=== PATIENT | male | born 1945 | race African-American/Black ===

== ENCOUNTER → 2017-06-11 | Outpatient (CLI) | payer MEDICARE, BC | END | disposition home or self-care (01) | LOC: KCIC MRI 12:50 | DX: M51.36 Other intervertebral disc degeneration, lumbar region (principal); M48.061 Spinal stenosis, lumbar region without neurogenic claudication; M17.0 Bilateral primary osteoarthritis of knee | CPT/HCPCS: 72148 ==

== ENCOUNTER → 2017-06-22 | Outpatient (CLI) | payer MEDICARE, BC ==
[2017-06-22 10:06] LABS: ALBUMIN 4.2 g/dL (3.4-5.0)
[2017-06-22 10:41] LABS: INR 1.1 (0.8-1.1); PARTIAL THROMBOPLASTIN TIME 33 SEC (24-38)
[2017-06-22 12:05] LABS: SEDIMENTATION RATE 4 (0-15)
[2017-06-22 12:44] LABS: BILIRUBIN,URINE NEGATIVE (NEG); CLARITY,URINE CLEAR; COLOR,URINE YELLOW; GLUCOSE,URINE NEGATIVE (NEG); NITRITE,URINE NEGATIVE (NEG); PROTEIN,URINE NEGATIVE (NEG-TRACE)
[2017-06-22 12:51] LABS: HYALINE CASTS, URINE FEW /HPF
[2017-06-22 12:52] LABS: BACTERIA,URINE 0 /HPF (0-FEW); RBC,URINE 0 /HPF (0-2); WBC,URINE 0 /HPF (0-4)
[2017-06-22 22:09] LABS: MRSA BY PCR Negative (Negative)
== END | disposition home or self-care (01) ==
LOC: SURGPAT 12:31
DX: Z01.818 Encounter for other preprocedural examination (principal); I10 Essential (primary) hypertension; I70.0 Atherosclerosis of aorta; R94.31 Abnormal electrocardiogram [ECG] [EKG]
CPT/HCPCS: 36415; 71046; 81001; 82040; 82306; 85610; 85651; 85730; 87641; 93005

== ENCOUNTER 2017-07-07 07:44 | Inpatient (IN) | payer MEDICARE, BC ==
[~2017-07-07 07:44] MED LIST: LIDOCAINE 1% PF 2 ML VIAL. ID; MELOXICAM 7.5 MG TABLET PO; MORPHINE SULFATE 4 MG/ML DISP.SYRIN. IV; fentaNYL PF VIAL 100 MCG/2 ML VIAL IV
[2017-07-07] MEDS: IV RINGERS,LACTATED 1000ML 1,000 ML IV (08:20)
[2017-07-07] MEDS: HYDROcodone/APAP 7.5/325MG 1 TAB TABLET PO (08:20)
[2017-07-07] MEDS ORDERED: SUCCINYLCHOLINE 200 MG/10 ML VIAL. (09:02)
[2017-07-07] MEDS ORDERED: DEXAMETHASONE SOD PHOS 20 MG/5 ML VIAL. (09:02)
[2017-07-07] MEDS ORDERED: PROPOFOL 20 ML IV (09:02)
[2017-07-07] MEDS ORDERED: LIDOCAINE 2% PF Vial for OR 5 ML VIAL. (09:02)
[2017-07-07] MEDS ORDERED: fentaNYL PF VIAL 100 MCG/2 ML VIAL ×2 (09:02→11:21)
[2017-07-07] MEDS ORDERED: ONDANSETRON PF 4 MG/2 ML VIAL. (09:03)
[2017-07-07] MEDS: TRANEXAMIC ACID 1,000 MG in IV NS 50ML -- 1ST BAG INJ (11:20)
[2017-07-07] MEDS: VANCOMYCIN 1 GM VIAL. (11:32)
[2017-07-07] MEDS: MORPHINE SULFATE 5 MG, KETOROLAC 30 MG, ROPIVacaine 0.5% PF 60 ML, EPINEPHrine 0.5 MG i... INT ART (11:32)
[2017-07-07] MEDS: TOBRAMYCIN POWDER 1.2 GM VIAL. (11:32)
[2017-07-07] MEDS ORDERED: SEVOFLURANE 16 TO 30 MINUTES. IH (11:50)
[2017-07-07] MEDS: TRANEXAMIC ACID 1,000 MG in IV NS 50ML -- 2ND BAG INJ (12:30)
[2017-07-07] MEDS ORDERED: ZOLPIDEM 5 MG TABLET. PO (13:30)
[2017-07-07] MEDS ORDERED: METOCLOPRAMIDE HCL 10 MG/2 ML VIAL. IV (13:30)
[2017-07-07] MEDS ORDERED: MORPHINE SULFATE 10 MG/ML VIAL. IV (13:30)
[2017-07-07] MEDS ORDERED: diphenhydrAMINE 50 MG/ML VIAL IV (13:30)
[2017-07-07] MEDS ORDERED: PROCHLORPERAZINE 5 MG TABLET. PO (13:30)
[2017-07-07] MEDS ORDERED: 0.9 % SODIUM CHLORIDE 10 ML DISP.SYRIN. IV (13:30)
[2017-07-07] MEDS ORDERED: oxyCODONE/APAP 7.5/325 1 TAB TABLET PO (13:30)
[2017-07-07] MEDS ORDERED: HYDROcodone/APAP 10/325 1 TAB TABLET PO (13:30)
[2017-07-07] MEDS ORDERED: CALCIUM CARBONATE 500 MG TAB.CHEW PO (13:30)
[2017-07-07] MEDS ORDERED: ACETAMINOPHEN 325 MG TABLET. PO (13:30)
[2017-07-07] MEDS ORDERED: oxyCODONE/APAP 5/325 1 TAB TABLET PO (13:30)
[2017-07-07] MEDS ORDERED: DEXTROSE 50% 25 GM / 50ML DISP.SYRIN. IV (13:30)
[2017-07-07] MEDS ORDERED: fentaNYL PF VIAL 100 MCG/2 ML VIAL IV ×2 (13:30)
[2017-07-07] MEDS ORDERED: traMADol 50 MG TABLET PO ×2 (13:30)
[2017-07-07] MEDS ORDERED: MORPHINE SULFATE 4 MG/ML DISP.SYRIN. IV ×3 (13:30)
[2017-07-07] MEDS ORDERED: PROCHLORPERAZINE 10 MG/2 ML VIAL. IV (13:30)
[2017-07-07] MEDS: PROCHLORPERAZINE 10 MG/2 ML VIAL. IV (14:05)
[2017-07-07] MEDS: FERROUS SULFATE 325 MG TABLET. PO (15:23)
[2017-07-07] MEDS: ONDANSETRON PF 4 MG/2 ML VIAL. IV (16:45)
[2017-07-07] MEDS: KETOROLAC 30 MG, BUPIVACAINE MPF 0.25% 20 ML, EPINEPHrine 0.5 MG in TOTAL VOLUME SYRING... INT ART (16:47)
[2017-07-07] MEDS: IV DEXTROSE 5 %-0.45 % NACL 1,000 ML IV (20:15)
[2017-07-07] MEDS: LATANOPROST 0.005% OPHTH SOLUTION 2.5ML BOTTLE. OU (20:17)
[2017-07-07] MEDS: ASPIRIN ENTERIC COATED 325 MG TABLET.DR. PO (21:01)
[2017-07-08] MEDS: IV DEXTROSE 5 %-0.45 % NACL 1,000 ML IV (01:00)
[2017-07-08] MEDS: KETOROLAC 30 MG, BUPIVACAINE MPF 0.25% 20 ML, EPINEPHrine 0.5 MG in TOTAL VOLUME SYRING... INT ART (05:19)
[2017-07-08 05:58] LABS: HEMATOCRIT 44.5 % (39.0-53.0); HEMOGLOBIN 14.9 g/dL (13.0-17.5); MEAN CORPUSCULAR HGB CONC 33 g/dL (31-37)
[2017-07-08] MEDS ORDERED: MAGNESIUM HYDROXIDE 2,400 MG/30 ML ORAL.SUSP. PO (06:00)
[2017-07-08] MEDS: PSYLLIUM HUSK (SUGAR FREE) 1 PKT PACKET PO (08:08)
[2017-07-08] MEDS: CHOLECALCIFEROL (VITAMIN D3) 1,000 UNIT TABLET PO (08:14)
[2017-07-08] MEDS: MELOXICAM 7.5 MG TABLET PO (08:14)
[2017-07-08] MEDS: SENNOSIDES/DOCUSATE 8.6/50MG TABLET. PO (08:16)
[2017-07-08] MEDS: MULTIVITAMIN with MINERAL TABLET. PO (08:16)
[2017-07-08] MEDS: ALLOPURINOL 300 MG TABLET. PO (08:16)
[2017-07-08] MEDS: TRIAMTERENE/HCTZ 37.5/25MG TABLET. PO (08:17)
[2017-07-08] MEDS: ASPIRIN ENTERIC COATED 325 MG TABLET.DR. PO ×2 (08:17→21:17)
[2017-07-08] MEDS: FERROUS SULFATE 325 MG TABLET. PO ×2 (08:17→16:44)
[2017-07-08] MEDS: HYDROcodone/APAP 7.5/325MG 1 TAB TABLET PO ×3 (08:18→16:44)
[2017-07-08] MEDS ORDERED: BISACODYL 10 MG SUPP.RECT. PR (16:00)
[2017-07-08] MEDS: LATANOPROST 0.005% OPHTH SOLUTION 2.5ML BOTTLE. OU (21:00)
[2017-07-09] MEDS: HYDROcodone/APAP 7.5/325MG 1 TAB TABLET PO ×4 (02:50→19:40)
[2017-07-09 06:07] LABS: HEMATOCRIT 41.8 % (39.0-53.0); HEMOGLOBIN 13.7 g/dL (13.0-17.5); MEAN CORPUSCULAR HGB CONC 33 g/dL (31-37)
[2017-07-09] MEDS: MULTIVITAMIN with MINERAL TABLET. PO (08:25)
[2017-07-09] MEDS: FERROUS SULFATE 325 MG TABLET. PO ×2 (08:25→17:52)
[2017-07-09] MEDS: MELOXICAM 7.5 MG TABLET PO (08:25)
[2017-07-09] MEDS: ALLOPURINOL 300 MG TABLET. PO (08:25)
[2017-07-09] MEDS: CHOLECALCIFEROL (VITAMIN D3) 1,000 UNIT TABLET PO (08:25)
[2017-07-09] MEDS: SENNOSIDES/DOCUSATE 8.6/50MG TABLET. PO (08:26)
[2017-07-09] MEDS: ASPIRIN ENTERIC COATED 325 MG TABLET.DR. PO ×2 (08:26→20:51)
[2017-07-09] MEDS: PSYLLIUM HUSK (SUGAR FREE) 1 PKT PACKET PO (08:28)
[2017-07-09] MEDS: TRIAMTERENE/HCTZ 37.5/25MG TABLET. PO (08:28)
[2017-07-09] MEDS: LATANOPROST 0.005% OPHTH SOLUTION 2.5ML BOTTLE. OU (21:00)
[2017-07-10 05:58] LABS: HEMOGLOBIN 12.7 g/dL (13.0-17.5); MEAN CORPUSCULAR HGB CONC 34 g/dL (31-37)
[2017-07-10] MEDS: PSYLLIUM HUSK (SUGAR FREE) 1 PKT PACKET PO (09:22)
[2017-07-10] MEDS: SENNOSIDES/DOCUSATE 8.6/50MG TABLET. PO (09:22)
[2017-07-10] MEDS: CHOLECALCIFEROL (VITAMIN D3) 1,000 UNIT TABLET PO (09:23)
[2017-07-10] MEDS: MELOXICAM 7.5 MG TABLET PO (09:23)
[2017-07-10] MEDS: ALLOPURINOL 300 MG TABLET. PO (09:23)
[2017-07-10] MEDS: ASPIRIN ENTERIC COATED 325 MG TABLET.DR. PO (09:23)
[2017-07-10] MEDS: FERROUS SULFATE 325 MG TABLET. PO (09:23)
[2017-07-10] MEDS: HYDROcodone/APAP 7.5/325MG 1 TAB TABLET PO ×2 (09:24→14:58)
[2017-07-10] MEDS: TRIAMTERENE/HCTZ 37.5/25MG TABLET. PO (09:24)
[2017-07-10] MEDS: MULTIVITAMIN with MINERAL TABLET. PO (09:24)
== END 2017-07-10 16:00 | disposition home health service (06) | DRG 470 ==
LOC: OPSVCIP 07:44 → 4 SOUTHEST 14:46
PROC: 0SRD0J9 Replacement of Left Knee Joint with Synthetic Substitute, Cemented, Open Approach (ICD-10-PCS; principal; 2017-07-07 10:45)
DX: M17.0 Bilateral primary osteoarthritis of knee (principal); I10 Essential (primary) hypertension; Z82.3 Family history of stroke
CPT/HCPCS: 36415; 73560; 85014; 85018; 86850; 86900; 86901; 97110-GO; 97116-GP; 97150-GP; 97162-GP; 97165-GO; 97530-GO; 97530-GP; 97535-GO; A7015; C1713; J0171; J0330; J0690; J0780; J1100; J1885; J2270; J2405; J2704; J2795; J3010; J3260; J3370; J3490; J7030; J7120

== ENCOUNTER → 2017-09-07 | Outpatient (CLI) | payer MEDICARE, BC | END | disposition home or self-care (01) | LOC: PMGWOUND 12:26 | DX: T81.31XA Disruption of external operation (surgical) wound, not elsewhere classified, initial encounter (principal); H40.9 Unspecified glaucoma; I10 Essential (primary) hypertension; M54.9 Dorsalgia, unspecified; M10.9 Gout, unspecified; E66.9 Obesity, unspecified; M17.0 Bilateral primary osteoarthritis of knee; Z96.652 Presence of left artificial knee joint; Z68.34 Body mass index [BMI] 34.0-34.9, adult; Y83.8 Other surgical procedures as the cause of abnormal reaction of the patient, or of later complication, without mention of misadventure at the time of the procedure; Y92.89 Other specified places as the place of occurrence of the external cause | CPT/HCPCS: 97606 ==

== ENCOUNTER → 2017-09-14 | Outpatient (CLI) | payer MEDICARE, BC | END | disposition home or self-care (01) | LOC: PMGWOUND 12:16 | DX: T81.31XD Disruption of external operation (surgical) wound, not elsewhere classified, subsequent encounter (principal); I10 Essential (primary) hypertension; M17.0 Bilateral primary osteoarthritis of knee; E66.9 Obesity, unspecified; Z96.652 Presence of left artificial knee joint; Z68.34 Body mass index [BMI] 34.0-34.9, adult; Y83.8 Other surgical procedures as the cause of abnormal reaction of the patient, or of later complication, without mention of misadventure at the time of the procedure | CPT/HCPCS: 97606 ==

== ENCOUNTER → 2017-09-21 | Outpatient (CLI) | payer MEDICARE, BC | END | disposition home or self-care (01) | LOC: PMGWOUND 11:40 | DX: T81.31XD Disruption of external operation (surgical) wound, not elsewhere classified, subsequent encounter (principal); I10 Essential (primary) hypertension; M17.0 Bilateral primary osteoarthritis of knee; E66.9 Obesity, unspecified; Z96.652 Presence of left artificial knee joint; Z68.34 Body mass index [BMI] 34.0-34.9, adult; Y83.8 Other surgical procedures as the cause of abnormal reaction of the patient, or of later complication, without mention of misadventure at the time of the procedure | CPT/HCPCS: 97606 ==

== ENCOUNTER 2017-09-27 08:26 | Emergency (ER) | payer MEDICARE, BC | END 2017-09-27 10:14 | disposition home or self-care (01) | LOC: ER 08:26 | DX: T82.898A Other specified complication of vascular prosthetic devices, implants and grafts, initial encounter (principal); I10 Essential (primary) hypertension; Y84.8 Other medical procedures as the cause of abnormal reaction of the patient, or of later complication, without mention of misadventure at the time of the procedure; Y92.89 Other specified places as the place of occurrence of the external cause | CPT/HCPCS: 99284 ==

== ENCOUNTER → 2017-09-28 | Outpatient (CLI) | payer MEDICARE, BC | END | disposition home or self-care (01) | LOC: PMGWOUND 10:34 | DX: T81.31XD Disruption of external operation (surgical) wound, not elsewhere classified, subsequent encounter (principal); I10 Essential (primary) hypertension; M17.0 Bilateral primary osteoarthritis of knee; E66.9 Obesity, unspecified; Z68.34 Body mass index [BMI] 34.0-34.9, adult; Z96.652 Presence of left artificial knee joint; Y83.8 Other surgical procedures as the cause of abnormal reaction of the patient, or of later complication, without mention of misadventure at the time of the procedure | CPT/HCPCS: 97606 ==

== ENCOUNTER → 2017-10-05 | Outpatient (CLI) | payer MEDICARE, BC | END | disposition home or self-care (01) | LOC: PMGWOUND 11:39 | DX: T81.31XD Disruption of external operation (surgical) wound, not elsewhere classified, subsequent encounter (principal); I10 Essential (primary) hypertension; M17.0 Bilateral primary osteoarthritis of knee; E66.9 Obesity, unspecified; Z96.652 Presence of left artificial knee joint; Z68.34 Body mass index [BMI] 34.0-34.9, adult; Y83.8 Other surgical procedures as the cause of abnormal reaction of the patient, or of later complication, without mention of misadventure at the time of the procedure | CPT/HCPCS: 97606 ==

== ENCOUNTER 2017-10-09 12:40 | Inpatient (IN) | payer MEDICARE, BC ==
[2017-10-09 14:27] LABS: ADD MAN DIFF? NO
[2017-10-09 14:37] LABS: BASO # 0.1 x10^3/uL (0.0-0.2); BASO % 1 % (0-3); EOS # 0.6 x10^3/uL (0.0-0.7); EOS % 3 % (0-3); HEMATOCRIT 46.8 % (39.0-53.0); HEMOGLOBIN 15.5 g/dL (13.0-17.5); LYMPH # 1.5 x10^3/uL (1.0-4.8); LYMPH % 9 % (24-48); MEAN CORPUSCULAR HEMOGLOBIN 26 pg (25-35); MEAN CORPUSCULAR HGB CONC 33 g/dL (31-37); MEAN CORPUSCULAR VOLUME 78 fL (79-100); MONO % 6 % (0-9); NEUT # 13.9 x10^3uL (1.8-7.7); NEUT % 81 % (31-73); PLATELET COUNT 833 x10^3/uL (140-400); RED BLOOD COUNT 5.97 x10^6/uL (4.30-5.70); RED CELL DISTRIBUTION WIDTH 16.2 % (11.5-14.5); WHITE BLOOD COUNT 17.1 x10^3/uL (4.0-11.0)
[2017-10-09 14:39] LABS: ANION GAP 11 (6-14); BLOOD UREA NITROGEN 26 mg/dL (8-26); CARBON DIOXIDE 27 mmol/L (21-32); CHLORIDE 99 mmol/L (98-107); CREATININE 1.4 mg/dL (0.7-1.3); GFR 60.3; GLUCOSE 98 mg/dL (70-99); POTASSIUM 3.4 mmol/L (3.5-5.1); SODIUM 137 mmol/L (136-145)
[2017-10-09 14:41] LABS: C-REACTIVE PROTEIN 26.4 mg/L (0-3.3)
[2017-10-09 15:52] LABS: SEDIMENTATION RATE 34 (0-15)
[2017-10-09 15:54] LABS: PLT ESTIMATE INCREASED (ADEQUATE)
[2017-10-09] MEDS ORDERED: MORPHINE SULFATE 4 MG/ML DISP.SYRIN. IV (17:15)
[2017-10-09] MEDS ORDERED: ONDANSETRON PF 4 MG/2 ML VIAL. IV ×2 (17:15→17:30)
[2017-10-09] MEDS ORDERED: ACETAMINOPHEN 500 MG TABLET PO (17:30)
[2017-10-09] MEDS: oxyCODONE/APAP 5/325 1 TAB TABLET PO (17:45)
[2017-10-09] MEDS: VANCOMYCIN PER PHARMACY MC ×2 (19:34→19:35)
[2017-10-09] MEDS: VANCOMYCIN 2 GM in IV NORMAL SALINE 500ML BAG 500 ML IV (20:02)
[2017-10-09] MEDS: C.DIFF MED SCREEN BY RX. MC (20:30)
[2017-10-09] MEDS ORDERED: CEFEPIME HCL 2 GM in IV DEXTROSE 5% 100ML 100 ML IV (22:00)
[2017-10-09] MEDS: TAMSULOSIN 0.4 MG CAP.ER.24H. PO (22:18)
[2017-10-09] MEDS: DOCUSATE SODIUM 100 MG CAPSULE. PO (22:18)
[2017-10-09] MEDS: ASPIRIN 325 MG TABLET PO (22:18)
[2017-10-09] MEDS: LACTOBACILLUS RHAMNOSUS GG 1 CAPSULE. PO (22:18)
[2017-10-09] MEDS: LATANOPROST 0.005% OPHTH SOLUTION 2.5ML BOTTLE. OU (22:22)
[2017-10-09] MEDS: CEFEPIME HCL IV Push 2 GM VIAL. IVP (23:27)
[2017-10-10] MEDS: diphenhydrAMINE HCL 25 MG CAPSULE PO ×2 (00:48→16:13)
[2017-10-10] MEDS: CEFEPIME HCL IV Push 2 GM VIAL. IVP ×3 (05:40→20:56)
[2017-10-10 05:41] LABS: BASO # 0.1 x10^3/uL (0.0-0.2); BASO % 1 % (0-3); EOS # 1.5 x10^3/uL (0.0-0.7); EOS % 9 % (0-3); HEMATOCRIT 43.2 % (39.0-53.0); HEMOGLOBIN 14.2 g/dL (13.0-17.5); LYMPH # 2.6 x10^3/uL (1.0-4.8); LYMPH % 16 % (24-48); MEAN CORPUSCULAR HEMOGLOBIN 26 pg (25-35); MEAN CORPUSCULAR HGB CONC 33 g/dL (31-37); MEAN CORPUSCULAR VOLUME 79 fL (79-100); MONO # 1.2 x10^3/uL (0.0-1.1); MONO % 7 % (0-9); NEUT # 10.8 x10^3uL (1.8-7.7); NEUT % 66 % (31-73); PLATELET COUNT 765 x10^3/uL (140-400); RED BLOOD COUNT 5.46 x10^6/uL (4.30-5.70); RED CELL DISTRIBUTION WIDTH 16.3 % (11.5-14.5); WHITE BLOOD COUNT 16.2 x10^3/uL (4.0-11.0)
[2017-10-10 06:17] LABS: ADD MAN DIFF? YES
[2017-10-10 06:26] LABS: ANION GAP 10 (6-14); BLOOD UREA NITROGEN 23 mg/dL (8-26); CALCIUM 10.1 mg/dL (8.5-10.1); CARBON DIOXIDE 26 mmol/L (21-32); CHLORIDE 101 mmol/L (98-107); CREATININE 1.2 mg/dL (0.7-1.3); GLUCOSE 87 mg/dL (70-99); SODIUM 137 mmol/L (136-145)
[2017-10-10 06:31] LABS: POTASSIUM 2.8 mmol/L (3.5-5.1)
[2017-10-10] MEDS: POTASSIUM CHLORIDE 20 MEQ TABLET.ER. PO ×2 (07:30→09:19)
[2017-10-10] MEDS: ASPIRIN 325 MG TABLET PO ×2 (09:17→20:57)
[2017-10-10] MEDS: MULTIVITAMIN with MINERAL TABLET. PO (09:17)
[2017-10-10] MEDS: FERROUS SULFATE 325 MG TABLET. PO (09:17)
[2017-10-10] MEDS: MELOXICAM 7.5 MG TABLET PO (09:17)
[2017-10-10] MEDS: LACTOBACILLUS RHAMNOSUS GG 1 CAPSULE. PO ×2 (09:17→20:57)
[2017-10-10] MEDS: ALLOPURINOL 300 MG TABLET. PO (09:18)
[2017-10-10] MEDS: TRIAMTERENE/HCTZ 37.5/25MG TABLET. PO (09:18)
[2017-10-10] MEDS: CHOLECALCIFEROL (VITAMIN D3) 1,000 UNIT TABLET PO (09:18)
[2017-10-10] MEDS: DOCUSATE SODIUM 100 MG CAPSULE. PO ×2 (09:18→20:57)
[2017-10-10] MEDS: PSYLLIUM HUSK (SUGAR FREE) 1 PKT PACKET PO (09:19)
[2017-10-10] MEDS: VANCOMYCIN PER PHARMACY MC (09:23)
[2017-10-10 09:36] LABS: % BASOS 1 % (0-3); % EOS 4 % (0-5); % LYMPHS 12 % (24-48); % MONOS 8 % (0-10); % SEGS 75 % (35-66); PLT ESTIMATE INCREASED (ADEQUATE)
[2017-10-10] MEDS: VANCOMYCIN 2 GM in IV NORMAL SALINE 500ML BAG 500 ML IV (13:32)
[2017-10-10] MEDS: HYDROCORTISONE 1% TOPICAL OINTMENT 30GM TUBE. TP ×2 (13:38→20:56)
[2017-10-10] MEDS ORDERED: VANCOMYCIN 1.5 GM in IV NORMAL SALINE 500ML BAG 500 ML IV (20:00)
[2017-10-10] MEDS: LATANOPROST 0.005% OPHTH SOLUTION 2.5ML BOTTLE. OU (20:56)
[2017-10-10] MEDS: TAMSULOSIN 0.4 MG CAP.ER.24H. PO (20:57)
[2017-10-11] MEDS: CEFEPIME HCL IV Push 2 GM VIAL. IVP ×3 (05:58→21:13)
[2017-10-11 07:29] LABS: ADD MAN DIFF? NO
[2017-10-11 07:43] LABS: ANION GAP 8 (6-14); BLOOD UREA NITROGEN 21 mg/dL (8-26); CALCIUM 9.3 mg/dL (8.5-10.1); CARBON DIOXIDE 25 mmol/L (21-32); CHLORIDE 104 mmol/L (98-107); CREATININE 1.2 mg/dL (0.7-1.3); GLUCOSE 103 mg/dL (70-99); POTASSIUM 3.4 mmol/L (3.5-5.1); SODIUM 137 mmol/L (136-145)
[2017-10-11 07:49] LABS: VANC TR 15.1 mcg/mL (10.0-20.0)
[2017-10-11 08:01] LABS: BASO # 0.1 x10^3/uL (0.0-0.2); BASO % 1 % (0-3); EOS # 1.9 x10^3/uL (0.0-0.7); EOS % 12 % (0-3); HEMATOCRIT 43.5 % (39.0-53.0); HEMOGLOBIN 14.1 g/dL (13.0-17.5); LYMPH # 2.3 x10^3/uL (1.0-4.8); LYMPH % 15 % (24-48); MEAN CORPUSCULAR HEMOGLOBIN 26 pg (25-35); MEAN CORPUSCULAR HGB CONC 33 g/dL (31-37); MEAN CORPUSCULAR VOLUME 79 fL (79-100); MONO # 1.1 x10^3/uL (0.0-1.1); MONO % 7 % (0-9); NEUT # 10.4 x10^3uL (1.8-7.7); NEUT % 66 % (31-73); PLATELET COUNT 757 x10^3/uL (140-400); RED BLOOD COUNT 5.48 x10^6/uL (4.30-5.70); RED CELL DISTRIBUTION WIDTH 16.1 % (11.5-14.5); WHITE BLOOD COUNT 15.9 x10^3/uL (4.0-11.0)
[2017-10-11] MEDS: VANCOMYCIN PER PHARMACY MC (08:15)
[2017-10-11] MEDS: CHOLECALCIFEROL (VITAMIN D3) 1,000 UNIT TABLET PO (08:22)
[2017-10-11] MEDS: LACTOBACILLUS RHAMNOSUS GG 1 CAPSULE. PO ×2 (08:22→21:12)
[2017-10-11] MEDS: PSYLLIUM HUSK (SUGAR FREE) 1 PKT PACKET PO (08:22)
[2017-10-11] MEDS: TRIAMTERENE/HCTZ 37.5/25MG TABLET. PO (08:22)
[2017-10-11] MEDS: MULTIVITAMIN with MINERAL TABLET. PO (08:22)
[2017-10-11] MEDS: FERROUS SULFATE 325 MG TABLET. PO (08:22)
[2017-10-11] MEDS: ALLOPURINOL 300 MG TABLET. PO (08:23)
[2017-10-11] MEDS: MELOXICAM 7.5 MG TABLET PO (08:23)
[2017-10-11] MEDS: ASPIRIN 325 MG TABLET PO ×2 (08:23→21:12)
[2017-10-11] MEDS: DOCUSATE SODIUM 100 MG CAPSULE. PO ×2 (08:23→21:12)
[2017-10-11] MEDS: VANCOMYCIN 2 GM in IV NORMAL SALINE 500ML BAG 500 ML IV (09:23)
[2017-10-11] MEDS: HYDROCORTISONE 1% TOPICAL OINTMENT 30GM TUBE. TP ×2 (09:23→21:12)
[2017-10-11] MEDS: LATANOPROST 0.005% OPHTH SOLUTION 2.5ML BOTTLE. OU (21:12)
[2017-10-11] MEDS: TAMSULOSIN 0.4 MG CAP.ER.24H. PO (21:12)
[2017-10-11] MEDS: diphenhydrAMINE HCL 25 MG CAPSULE PO (21:16)
[2017-10-12] MEDS: VANCOMYCIN 2 GM in IV NORMAL SALINE 500ML BAG 500 ML IV (02:20)
[2017-10-12 04:42] LABS: ADD MAN DIFF? NO
[2017-10-12 04:49] LABS: BASO # 0.1 x10^3/uL (0.0-0.2); BASO % 1 % (0-3); EOS % 13 % (0-3); HEMATOCRIT 42.1 % (39.0-53.0); HEMOGLOBIN 13.7 g/dL (13.0-17.5); LYMPH # 2.3 x10^3/uL (1.0-4.8); LYMPH % 15 % (24-48); MEAN CORPUSCULAR HEMOGLOBIN 26 pg (25-35); MEAN CORPUSCULAR HGB CONC 33 g/dL (31-37); MEAN CORPUSCULAR VOLUME 80 fL (79-100); MONO # 1.1 x10^3/uL (0.0-1.1); MONO % 7 % (0-9); NEUT # 9.9 x10^3uL (1.8-7.7); NEUT % 64 % (31-73); PLATELET COUNT 700 x10^3/uL (140-400); RED BLOOD COUNT 5.28 x10^6/uL (4.30-5.70); RED CELL DISTRIBUTION WIDTH 16.2 % (11.5-14.5); WHITE BLOOD COUNT 15.5 x10^3/uL (4.0-11.0)
[2017-10-12 05:07] LABS: ANION GAP 8 (6-14); BLOOD UREA NITROGEN 19 mg/dL (8-26); CALCIUM 9.3 mg/dL (8.5-10.1); CARBON DIOXIDE 25 mmol/L (21-32); CHLORIDE 104 mmol/L (98-107); CREATININE 1.2 mg/dL (0.7-1.3); GLUCOSE 84 mg/dL (70-99); POTASSIUM 3.2 mmol/L (3.5-5.1); SODIUM 137 mmol/L (136-145)
[2017-10-12] MEDS: CEFEPIME HCL IV Push 2 GM VIAL. IVP ×3 (06:01→21:51)
[2017-10-12] MEDS: MELOXICAM 7.5 MG TABLET PO (08:39)
[2017-10-12] MEDS: DOCUSATE SODIUM 100 MG CAPSULE. PO ×2 (08:39→21:46)
[2017-10-12] MEDS: LACTOBACILLUS RHAMNOSUS GG 1 CAPSULE. PO ×2 (08:41→21:46)
[2017-10-12] MEDS: CHOLECALCIFEROL (VITAMIN D3) 1,000 UNIT TABLET PO (08:41)
[2017-10-12] MEDS: MULTIVITAMIN with MINERAL TABLET. PO (08:42)
[2017-10-12] MEDS: FERROUS SULFATE 325 MG TABLET. PO (08:42)
[2017-10-12] MEDS: ASPIRIN 325 MG TABLET PO ×2 (08:43→21:46)
[2017-10-12] MEDS: TRIAMTERENE/HCTZ 37.5/25MG TABLET. PO (08:43)
[2017-10-12] MEDS: ALLOPURINOL 300 MG TABLET. PO (08:43)
[2017-10-12] MEDS: HYDROCORTISONE 1% TOPICAL OINTMENT 30GM TUBE. TP ×2 (08:44→21:51)
[2017-10-12] MEDS: PSYLLIUM HUSK (SUGAR FREE) 1 PKT PACKET PO (08:44)
[2017-10-12] MEDS: CIPROFLOXACIN HCL 250 MG TABLET. PO ×2 (12:18→21:46)
[2017-10-12] MEDS: POTASSIUM CHLORIDE 20 MEQ TABLET.ER. PO (16:26)
[2017-10-12] MEDS: TAMSULOSIN 0.4 MG CAP.ER.24H. PO (21:46)
[2017-10-12] MEDS: LATANOPROST 0.005% OPHTH SOLUTION 2.5ML BOTTLE. OU (21:47)
[2017-10-13] MEDS: CEFEPIME HCL IV Push 2 GM VIAL. IVP ×3 (06:31→21:35)
[2017-10-13 07:19] LABS: ADD MAN DIFF? NO
[2017-10-13 07:31] LABS: BASO # 0.1 x10^3/uL (0.0-0.2); BASO % 1 % (0-3); EOS # 1.7 x10^3/uL (0.0-0.7); EOS % 11 % (0-3); HEMATOCRIT 43.2 % (39.0-53.0); HEMOGLOBIN 14.3 g/dL (13.0-17.5); LYMPH # 2.4 x10^3/uL (1.0-4.8); LYMPH % 17 % (24-48); MEAN CORPUSCULAR HEMOGLOBIN 26 pg (25-35); MEAN CORPUSCULAR HGB CONC 33 g/dL (31-37); MEAN CORPUSCULAR VOLUME 79 fL (79-100); MONO % 7 % (0-9); NEUT # 9.6 x10^3uL (1.8-7.7); NEUT % 65 % (31-73); PLATELET COUNT 756 x10^3/uL (140-400); RED BLOOD COUNT 5.47 x10^6/uL (4.30-5.70); RED CELL DISTRIBUTION WIDTH 16.4 % (11.5-14.5); WHITE BLOOD COUNT 14.8 x10^3/uL (4.0-11.0)
[2017-10-13 07:51] LABS: ALBUMIN 2.7 g/dL (3.4-5.0); ALBUMIN/GLOBULIN RATIO 0.6 (1.0-1.7); ALK PHOS 142 U/L (46-116); ALT (SGPT) 20 U/L (16-63); ANION GAP 9 (6-14); AST (SGOT) 20 U/L (15-37); BLOOD UREA NITROGEN 19 mg/dL (8-26); BUN/CREATININE RATIO 13 (6-20); CALCIUM 9.6 mg/dL (8.5-10.1); CARBON DIOXIDE 25 mmol/L (21-32); CHLORIDE 104 mmol/L (98-107); CREATININE 1.5 mg/dL (0.7-1.3); GFR 55.7; GLUCOSE 106 mg/dL (70-99); POTASSIUM 3.3 mmol/L (3.5-5.1); SODIUM 138 mmol/L (136-145); TOTAL BILIRUBIN 0.3 mg/dL (0.2-1.0); TOTAL PROTEIN 7.5 g/dL (6.4-8.2)
[2017-10-13 08:48] LABS: SEDIMENTATION RATE 20 (0-15)
[2017-10-13] MEDS: ASPIRIN 325 MG TABLET PO ×2 (09:00→21:20)
[2017-10-13] MEDS: FERROUS SULFATE 325 MG TABLET. PO (09:00)
[2017-10-13] MEDS: MULTIVITAMIN with MINERAL TABLET. PO (09:00)
[2017-10-13] MEDS: DOCUSATE SODIUM 100 MG CAPSULE. PO ×2 (09:00→21:21)
[2017-10-13] MEDS: CIPROFLOXACIN HCL 250 MG TABLET. PO ×2 (09:00→21:20)
[2017-10-13] MEDS: ALLOPURINOL 300 MG TABLET. PO (09:00)
[2017-10-13] MEDS: HYDROCORTISONE 1% TOPICAL OINTMENT 30GM TUBE. TP ×2 (09:00→21:20)
[2017-10-13] MEDS: CHOLECALCIFEROL (VITAMIN D3) 1,000 UNIT TABLET PO (09:00)
[2017-10-13] MEDS: TRIAMTERENE/HCTZ 37.5/25MG TABLET. PO ×2 (09:00→09:19)
[2017-10-13] MEDS: MELOXICAM 7.5 MG TABLET PO (09:00)
[2017-10-13] MEDS: PSYLLIUM HUSK (SUGAR FREE) 1 PKT PACKET PO (09:00)
[2017-10-13] MEDS: LACTOBACILLUS RHAMNOSUS GG 1 CAPSULE. PO ×2 (09:00→21:20)
[2017-10-13 09:16] LABS: INR 1.2 (0.8-1.1); PROTHROMBIN TIME PATIENT 14.6 SEC (11.7-14.0)
[2017-10-13] MEDS ORDERED: LIDOCAINE WITH 8.4% SOD BICARB 3 ML DISP.SYRIN. (10:57)
[2017-10-13] MEDS ORDERED: fentaNYL PF VIAL 100 MCG/2 ML VIAL (11:03)
[2017-10-13] MEDS ORDERED: NALOXONE 0.4 MG/ML VIAL. (11:03)
[2017-10-13] MEDS ORDERED: FLUMAZENIL 0.5 MG/5 ML VIAL. IV (11:03)
[2017-10-13] MEDS ORDERED: MIDAZOLAM HCL/PF 2 MG/2 ML VIAL. (11:03)
[2017-10-13] MEDS: fentaNYL PF VIAL 100 MCG/2 ML VIAL IV (11:15)
[2017-10-13] MEDS: LIDOCAINE WITH 8.4% SOD BICARB 3 ML DISP.SYRIN. IJ (11:15)
[2017-10-13] MEDS: MIDAZOLAM HCL/PF 2 MG/2 ML VIAL. IV (11:15)
[2017-10-13] MEDS: LATANOPROST 0.005% OPHTH SOLUTION 2.5ML BOTTLE. OU (21:00)
[2017-10-13] MEDS: TAMSULOSIN 0.4 MG CAP.ER.24H. PO (21:20)
[2017-10-13] MEDS: diphenhydrAMINE HCL 25 MG CAPSULE PO (21:20)
[2017-10-14 04:39] LABS: ADD MAN DIFF? NO
[2017-10-14 04:57] LABS: BASO # 0.1 x10^3/uL (0.0-0.2); BASO % 1 % (0-3); EOS # 1.6 x10^3/uL (0.0-0.7); EOS % 11 % (0-3); HEMATOCRIT 42.4 % (39.0-53.0); LYMPH # 1.7 x10^3/uL (1.0-4.8); LYMPH % 12 % (24-48); MEAN CORPUSCULAR HEMOGLOBIN 26 pg (25-35); MEAN CORPUSCULAR HGB CONC 33 g/dL (31-37); MEAN CORPUSCULAR VOLUME 79 fL (79-100); MONO # 1.1 x10^3/uL (0.0-1.1); MONO % 7 % (0-9); NEUT % 69 % (31-73); PLATELET COUNT 747 x10^3/uL (140-400); RED BLOOD COUNT 5.36 x10^6/uL (4.30-5.70); RED CELL DISTRIBUTION WIDTH 16.4 % (11.5-14.5); WHITE BLOOD COUNT 14.6 x10^3/uL (4.0-11.0)
[2017-10-14 05:13] LABS: ANION GAP 9 (6-14); BLOOD UREA NITROGEN 21 mg/dL (8-26); CALCIUM 9.4 mg/dL (8.5-10.1); CARBON DIOXIDE 27 mmol/L (21-32); CHLORIDE 103 mmol/L (98-107); CREATININE 1.4 mg/dL (0.7-1.3); GFR 60.3; GLUCOSE 80 mg/dL (70-99); POTASSIUM 3.2 mmol/L (3.5-5.1); SODIUM 139 mmol/L (136-145)
[2017-10-14] MEDS: CEFEPIME HCL IV Push 2 GM VIAL. IVP ×2 (06:00→10:20)
[2017-10-14] MEDS: ALLOPURINOL 300 MG TABLET. PO (08:38)
[2017-10-14] MEDS: PSYLLIUM HUSK (SUGAR FREE) 1 PKT PACKET PO (08:38)
[2017-10-14] MEDS: ASPIRIN 325 MG TABLET PO (08:38)
[2017-10-14] MEDS: TRIAMTERENE/HCTZ 37.5/25MG TABLET. PO (08:38)
[2017-10-14] MEDS: CIPROFLOXACIN HCL 250 MG TABLET. PO (08:38)
[2017-10-14] MEDS: LACTOBACILLUS RHAMNOSUS GG 1 CAPSULE. PO (08:38)
[2017-10-14] MEDS: DOCUSATE SODIUM 100 MG CAPSULE. PO (08:39)
[2017-10-14] MEDS: FERROUS SULFATE 325 MG TABLET. PO (08:39)
[2017-10-14] MEDS: CHOLECALCIFEROL (VITAMIN D3) 1,000 UNIT TABLET PO (08:39)
[2017-10-14] MEDS: MULTIVITAMIN with MINERAL TABLET. PO (08:39)
[2017-10-14] MEDS: HYDROCORTISONE 1% TOPICAL OINTMENT 30GM TUBE. TP (08:39)
== END 2017-10-14 15:31 | disposition home health service (06) | DRG 314 ==
LOC: 5 SOUTH 18:00 → ER 12:40 → 5 SOUTH 16:27
PROC: 02PYX3Z Removal of Infusion Device from Great Vessel, External Approach (ICD-10-PCS; principal; 2017-10-09)
PROC: 07DR3ZX Extraction of Iliac Bone Marrow, Percutaneous Approach, Diagnostic (ICD-10-PCS; 2017-10-13)
DX: T80.212A Local infection due to central venous catheter, initial encounter (principal); E43 Unspecified severe protein-calorie malnutrition; E87.6 Hypokalemia; I10 Essential (primary) hypertension; N28.9 Disorder of kidney and ureter, unspecified; Y84.8 Other medical procedures as the cause of abnormal reaction of the patient, or of later complication, without mention of misadventure at the time of the procedure; Z96.652 Presence of left artificial knee joint; D72.829 Elevated white blood cell count, unspecified; D47.3 Essential (hemorrhagic) thrombocythemia; H26.9 Unspecified cataract; M19.90 Unspecified osteoarthritis, unspecified site; M21.372 Foot drop, left foot; Z82.3 Family history of stroke; Z82.49 Family history of ischemic heart disease and other diseases of the circulatory system; Z68.36 Body mass index [BMI] 36.0-36.9, adult
CPT/HCPCS: 36415; 38222; 77012; 80048; 80053; 80202; 85007; 85025; 85610; 85651; 86140; 87040; 87070; 88184; 88185; 88237; 93971; 97110-GO; 97110-GP; 97163-GP; 97166-GO; 97530-GP; 99152; 99153; 99285; 99285-25; J0692; J2250; J3010; J3370; J7040; Q0163

== ENCOUNTER → 2017-10-19 | Outpatient (CLI) | payer MEDICARE, BC | END | disposition home or self-care (01) | LOC: PMGWOUND 10:33 | DX: T81.31XD Disruption of external operation (surgical) wound, not elsewhere classified, subsequent encounter (principal); I10 Essential (primary) hypertension; M17.0 Bilateral primary osteoarthritis of knee; E66.9 Obesity, unspecified; Z96.652 Presence of left artificial knee joint; Z68.36 Body mass index [BMI] 36.0-36.9, adult; Y83.8 Other surgical procedures as the cause of abnormal reaction of the patient, or of later complication, without mention of misadventure at the time of the procedure | CPT/HCPCS: 97606 ==

== ENCOUNTER → 2017-10-26 | Outpatient (CLI) | payer MEDICARE, BC ==
[2017-10-14 11:00] VITALS: BP 138/83
[~2017-10-26] MED LIST changes: +ALLO300T PO; +ASPI325T8 PO; +CEFE2VIA2 IJ; +CEPH-264 PO; +CHOL2000 PO; +DOCU-150 PO; +FERR-36 PO; +FERR325T14 PO; +LACT1CAP21 PO; -LIDOCAINE 1% PF 2 ML VIAL. ID; +MELO15TA23 PO; +MELO15TA6 PO; -MELOXICAM 7.5 MG TABLET PO; -MORPHINE SULFATE 4 MG/ML DISP.SYRIN. IV; +MULT1TAB52 PO; +NIFE30TA17 PO; +OMEG1CAP6 PO; +TAMS0.4C97 PO; +TRAV5DRO OU; +TRIA1TAB3 PO; +WHEA1POW8 PO; -fentaNYL PF VIAL 100 MCG/2 ML VIAL IV
== END | disposition home or self-care (01) ==
LOC: PMGWOUND 10:43
PROVIDERS: ATTEND Emergency Medicine Undersea and Hyperbaric Medicine
DX: T81.31XD Disruption of external operation (surgical) wound, not elsewhere classified, subsequent encounter (principal); M17.0 Bilateral primary osteoarthritis of knee; I10 Essential (primary) hypertension; E66.8 Other obesity; M10.9 Gout, unspecified; Z68.36 Body mass index [BMI] 36.0-36.9, adult; Z96.652 Presence of left artificial knee joint; Z96.651 Presence of right artificial knee joint; Y83.8 Other surgical procedures as the cause of abnormal reaction of the patient, or of later complication, without mention of misadventure at the time of the procedure
CPT/HCPCS: 97606

== ENCOUNTER → 2017-11-02 | Outpatient (CLI) | payer MEDICARE, BC ==
[2017-10-14 11:00] VITALS: BP 138/83
== END | disposition home or self-care (01) ==
LOC: PMGWOUND 11:14
PROVIDERS: ATTEND Emergency Medicine Undersea and Hyperbaric Medicine
DX: T81.31XD Disruption of external operation (surgical) wound, not elsewhere classified, subsequent encounter (principal); I10 Essential (primary) hypertension; M10.9 Gout, unspecified; M17.0 Bilateral primary osteoarthritis of knee; E66.8 Other obesity; Z68.36 Body mass index [BMI] 36.0-36.9, adult; Z96.653 Presence of artificial knee joint, bilateral; Y83.8 Other surgical procedures as the cause of abnormal reaction of the patient, or of later complication, without mention of misadventure at the time of the procedure
CPT/HCPCS: 97606

== ENCOUNTER → 2017-11-09 | Outpatient (CLI) | payer MEDICARE, BC ==
[2017-10-14 11:00] VITALS: BP 138/83
== END | disposition home or self-care (01) ==
LOC: PMGWOUND 10:44
PROVIDERS: ATTEND Emergency Medicine Undersea and Hyperbaric Medicine
DX: T81.31XD Disruption of external operation (surgical) wound, not elsewhere classified, subsequent encounter (principal); M10.9 Gout, unspecified; M17.0 Bilateral primary osteoarthritis of knee; I10 Essential (primary) hypertension; E66.9 Obesity, unspecified; Z68.33 Body mass index [BMI] 33.0-33.9, adult; Z96.653 Presence of artificial knee joint, bilateral
CPT/HCPCS: 99214; G0463

== ENCOUNTER → 2017-11-17 | Outpatient (CLI) | payer MEDICARE, BC ==
[2017-10-14 11:00] VITALS: BP 138/83
== END | disposition home or self-care (01) ==
LOC: PMGWOUND 10:38
PROVIDERS: ATTEND Emergency Medicine Undersea and Hyperbaric Medicine
DX: T81.31XD Disruption of external operation (surgical) wound, not elsewhere classified, subsequent encounter (principal); I10 Essential (primary) hypertension; M17.0 Bilateral primary osteoarthritis of knee; M10.9 Gout, unspecified; H40.9 Unspecified glaucoma; E66.8 Other obesity; Z68.33 Body mass index [BMI] 33.0-33.9, adult; Z96.653 Presence of artificial knee joint, bilateral; Y83.8 Other surgical procedures as the cause of abnormal reaction of the patient, or of later complication, without mention of misadventure at the time of the procedure
CPT/HCPCS: 97597; 97598

== ENCOUNTER → 2017-11-23 | Outpatient (CLI) | payer MEDICARE, BC ==
[2017-10-14 11:00] VITALS: BP 138/83
== END | disposition home or self-care (01) ==
LOC: PMGWOUND 10:49
PROVIDERS: ATTEND Emergency Medicine Undersea and Hyperbaric Medicine
DX: T81.89XD Other complications of procedures, not elsewhere classified, subsequent encounter (principal); I10 Essential (primary) hypertension; M17.0 Bilateral primary osteoarthritis of knee; M10.9 Gout, unspecified; E66.8 Other obesity; Z68.33 Body mass index [BMI] 33.0-33.9, adult; Z96.653 Presence of artificial knee joint, bilateral; Y83.8 Other surgical procedures as the cause of abnormal reaction of the patient, or of later complication, without mention of misadventure at the time of the procedure
CPT/HCPCS: 11042; 11045

== ENCOUNTER → 2017-11-30 | Outpatient (CLI) | payer MEDICARE, BC ==
[2017-10-14 11:00] VITALS: BP 138/83
== END | disposition home or self-care (01) ==
LOC: PMGWOUND 10:17
PROVIDERS: ATTEND Emergency Medicine Undersea and Hyperbaric Medicine
DX: T81.31XD Disruption of external operation (surgical) wound, not elsewhere classified, subsequent encounter (principal); I10 Essential (primary) hypertension; M10.9 Gout, unspecified; M17.0 Bilateral primary osteoarthritis of knee; E66.8 Other obesity; Z68.33 Body mass index [BMI] 33.0-33.9, adult; Y83.8 Other surgical procedures as the cause of abnormal reaction of the patient, or of later complication, without mention of misadventure at the time of the procedure
CPT/HCPCS: 99213

== ENCOUNTER → 2017-12-07 | Outpatient (CLI) | payer MEDICARE, BC ==
[2017-10-14 11:00] VITALS: BP 138/83
== END | disposition home or self-care (01) ==
LOC: PMGWOUND 10:22
PROVIDERS: ATTEND Emergency Medicine Undersea and Hyperbaric Medicine
DX: T81.31XD Disruption of external operation (surgical) wound, not elsewhere classified, subsequent encounter (principal); I10 Essential (primary) hypertension; M10.9 Gout, unspecified; M17.0 Bilateral primary osteoarthritis of knee; E66.8 Other obesity; Z68.33 Body mass index [BMI] 33.0-33.9, adult; Y83.8 Other surgical procedures as the cause of abnormal reaction of the patient, or of later complication, without mention of misadventure at the time of the procedure
CPT/HCPCS: 99214; G0463

== ENCOUNTER → 2017-12-14 | Outpatient (CLI) | payer MEDICARE, BC ==
[2017-10-14 11:00] VITALS: BP 138/83
== END | disposition home or self-care (01) ==
LOC: PMGWOUND 10:25
PROVIDERS: ATTEND Emergency Medicine Undersea and Hyperbaric Medicine
DX: T81.31XD Disruption of external operation (surgical) wound, not elsewhere classified, subsequent encounter (principal); I10 Essential (primary) hypertension; M17.0 Bilateral primary osteoarthritis of knee; M10.9 Gout, unspecified; E66.8 Other obesity; Z68.33 Body mass index [BMI] 33.0-33.9, adult; Y83.8 Other surgical procedures as the cause of abnormal reaction of the patient, or of later complication, without mention of misadventure at the time of the procedure
CPT/HCPCS: 97597

== ENCOUNTER → 2017-12-21 | Outpatient (CLI) | payer MEDICARE, BC ==
[2017-10-14 11:00] VITALS: BP 138/83
== END | disposition home or self-care (01) ==
LOC: PMGWOUND 10:19
PROVIDERS: ATTEND Emergency Medicine Undersea and Hyperbaric Medicine
DX: T81.31XD Disruption of external operation (surgical) wound, not elsewhere classified, subsequent encounter (principal); I10 Essential (primary) hypertension; M17.0 Bilateral primary osteoarthritis of knee; M10.9 Gout, unspecified; E66.8 Other obesity; H40.9 Unspecified glaucoma; Z68.33 Body mass index [BMI] 33.0-33.9, adult; Z96.653 Presence of artificial knee joint, bilateral; Y83.8 Other surgical procedures as the cause of abnormal reaction of the patient, or of later complication, without mention of misadventure at the time of the procedure
CPT/HCPCS: 97597

== ENCOUNTER → 2017-12-28 | Outpatient (CLI) | payer MEDICARE, BC ==
[2017-10-14 11:00] VITALS: BP 138/83
== END | disposition home or self-care (01) ==
LOC: PMGWOUND 10:28
PROVIDERS: ATTEND Emergency Medicine Undersea and Hyperbaric Medicine
DX: T81.31XD Disruption of external operation (surgical) wound, not elsewhere classified, subsequent encounter (principal); I10 Essential (primary) hypertension; M17.0 Bilateral primary osteoarthritis of knee; M10.9 Gout, unspecified; H40.9 Unspecified glaucoma; E66.8 Other obesity; Z68.33 Body mass index [BMI] 33.0-33.9, adult; Z96.653 Presence of artificial knee joint, bilateral; Y83.8 Other surgical procedures as the cause of abnormal reaction of the patient, or of later complication, without mention of misadventure at the time of the procedure
CPT/HCPCS: 99214; G0463

== ENCOUNTER → 2018-01-04 | Outpatient (CLI) | payer MEDICARE, BC ==
[2017-10-14 11:00] VITALS: BP 138/83
[~2018-01-04] MED LIST changes: +FOLI1TAB16 PO; +HYDR500C16 PO; +LEVE500T56 PO
== END | disposition home or self-care (01) ==
LOC: PMGWOUND 11:12
PROVIDERS: ATTEND Emergency Medicine Undersea and Hyperbaric Medicine
DX: T81.31XD Disruption of external operation (surgical) wound, not elsewhere classified, subsequent encounter (principal); I10 Essential (primary) hypertension; M10.9 Gout, unspecified; M17.0 Bilateral primary osteoarthritis of knee; H40.9 Unspecified glaucoma; E66.8 Other obesity; Z68.33 Body mass index [BMI] 33.0-33.9, adult; Y83.8 Other surgical procedures as the cause of abnormal reaction of the patient, or of later complication, without mention of misadventure at the time of the procedure
CPT/HCPCS: 99215

== ENCOUNTER 2018-01-07 19:22 | Inpatient (IN) | payer MEDICARE, BC ==
[~2018-01-07] VITALS: Ht 185.4 cm; Wt 104.3 kg
[~2018-01-07 19:22] MED LIST changes: -FOLI1TAB16 PO; -HYDR500C16 PO; -LEVE500T56 PO
[2018-01-07 20:38] LABS: BASO % 0 % (0-3); EOS % 0 % (0-3); HEMATOCRIT 44.2 % (39.0-53.0); HEMOGLOBIN 14.6 g/dL (13.0-17.5); LYMPH # 1.5 x10^3/uL (1.0-4.8); LYMPH % 12 % (24-48); MEAN CORPUSCULAR HEMOGLOBIN 28 pg (25-35); MEAN CORPUSCULAR HGB CONC 33 g/dL (31-37); MEAN CORPUSCULAR VOLUME 85 fL (79-100); MONO # 1.4 x10^3/uL (0.0-1.1); MONO % 11 % (0-9); NEUT # 9.7 x10^3uL (1.8-7.7); NEUT % 77 % (31-73); PLATELET COUNT 704 x10^3/uL (140-400); RED BLOOD COUNT 5.21 x10^6/uL (4.30-5.70); RED CELL DISTRIBUTION WIDTH 28.4 % (11.5-14.5); WHITE BLOOD COUNT 12.6 x10^3/uL (4.0-11.0)
[2018-01-07 20:43] LABS: CALCIUM 9.9 mg/dL (8.5-10.1); CREATININE 1.4 mg/dL (0.7-1.3); GFR 60.3
[2018-01-07 20:55] LABS: ALBUMIN 2.8 g/dL (3.4-5.0); ALBUMIN/GLOBULIN RATIO 0.5 (1.0-1.7); TOTAL BILIRUBIN 0.6 mg/dL (0.2-1.0); TOTAL PROTEIN 8.9 g/dL (6.4-8.2)
--- NOTE | 2018-01-07 21:01 | RAD ---
PQRS Compliance statement: One or more of the following individualized dose reduction techniques were utilized for this examination: 1. Automated exposure control. 2. Adjustment of the mA and/or kV according to patient size. 3. Use of iterative reconstruction technique. Indication:SEIZURE TECHNIQUE: CT head without IV contrast COMPARISON:None FINDINGS: No pathologic extra-axial or intra-axial fluid collection. The ventricles and basal cisterns are within normal limits. Mild diffuse cerebral atrophy. No acute intracranial bleed. Confluent low-attenuation is seen in the periventricular and deep white matter. No focal loss of mane-white differentiation. The orbits are within normal limits. No suspicious calvarial lesion. Visualized paranasal sinuses and mastoid air cells are clear. IMPRESSION: 1. No acute intracranial process. 2. Confluent moderate White matter changes most likely secondary to chronic microvascular ischemic disease. Electronically signed by: Hansel Fine DO (01/07/2018 8:59 PM) [facility]
[2018-01-07 21:03] LABS: ANISOCYTOSIS MOD; PLT ESTIMATE INCREASED (ADEQUATE)
[2018-01-07] MEDS ORDERED: POTASSIUM CHLORIDE 20MEQ 50 ML IV ONE (21:45)
[2018-01-07] MEDS ORDERED: POTASSIUM CL 40MEQ IN 0.9%NACL 1,000 ML IV ONE (22:00)
[2018-01-07 22:56] LABS: BILIRUBIN,URINE NEGATIVE (NEG); CLARITY,URINE CLEAR; COLOR,URINE YELLOW; NITRITE,URINE NEGATIVE (NEG); PROTEIN,URINE 30 mg/dL (NEG-TRACE)
--- NOTE | 2018-01-07 23:03 | PHYS DOC ---
Past Medical History Past Medical History: Hypertension, Other Additional Past Medical Histor: pseudomonas infection, gout Past Surgical History: Knee Replacement, Other Additional Past Surgical Histo: Left knee hardware removal/antibiotic spacer Alcohol Use: None Drug Use: None Adult General Chief Complaint Chief Complaint: NEURO SYMPTOMS/DEFICITS [facility] HPI Patient is a 72 year old male who presents with an episode of absent gaze when he was transferring from his wheelchair 30 minutes prior to arrival. His states that he also had some tremors while it was occurring. She states that he has no history of seizure disorder. The patient does have a very complicated medical history with his left knee. He had surgery in June and has been unable to walk since that time. He is waiting for plastic surgery [facility] for skin grafts to cover tendons and musculature that is showing from a nonhealing wound. The patient is being seen by wound care for this problem. She states that he had increasing weakness over the past 2 days. He cannot have surgery until his platelet count comes down. He is being treated by Dr. Obrien for his thrombocytosis. She feels like the medication that he is taking might be causing his symptoms. He has also had 2 episodes of vomiting yesterday. His primary care provider called Jamar and he has not vomited since. Review of Systems Review of Systems Constitutional: Denies fever or chills [] Eyes: Denies change in visual acuity, redness, or eye pain [] HENT: Denies nasal congestion or sore throat [] Respiratory: Denies cough or shortness of breath [] Cardiovascular: No additional information not addressed in HPI [] GI: Denies abdominal pain, nausea, vomiting, bloody stools or diarrhea [] : Denies dysuria or hematuria [] Musculoskeletal: See history of present illness Integument: Denies rash or skin lesions [] Neurologic: Denies headache, focal weakness or sensory changes [] Endocrine: Denies polyuria or polydipsia [] All other systems were reviewed and found to be within normal limits, except as documented in this note. Current Medications Current Medications Current Medications Medications (Trade) Dose Ordered Sig/Sánchez Start Time Stop Time Status Last Admin Dose Admin Potassium Chloride/Sodium Chloride 1,000 ml @ 200 mls/hr 1X ONCE 01/07/18 22:00 01/08/18 02:59 01/07/18 22:00 200 MLS/HR Potassium Chloride/Water 50 ml @ 50 mls/hr 1X ONCE 01/07/18 21:45 01/07/18 22:44 UNV Allergies Allergies Allergies Coded Allergies Type Severity Reaction Last Updated Verified No Known Drug Allergies 08/31/17 No Physical Exam Physical Exam Constitutional: Well developed, well nourished, no acute distress, non-toxic appearance. [] HENT: Normocephalic, atraumatic, bilateral external ears normal, oropharynx moist, no oral exudates, nose normal. [] Eyes: PERRLA, EOMI, conjunctiva normal, no discharge. [] Neck: Normal range of motion, no tenderness, supple, no stridor. [] Cardiovascular:Heart rate regular rhythm, no murmur [] Lungs & Thorax: Bilateral breath sounds clear to auscultation [] Abdomen: Bowel sounds normal, soft, no tenderness, no masses, no pulsatile masses. [] Skin: Warm, dry, no erythema, no rash. [] Back: No tenderness, no CVA tenderness. [] Extremities: tenderness to left knee, range of motion decreased, knee is bandaged Neurologic: Alert and oriented X 3, normal motor function, normal sensory function, no focal deficits noted, cranial nerves II through XII are grossly intact. [] Psychologic: Affect normal, judgement normal, mood normal. [] Current Patient Data Vital Signs Vital Signs Date Time Temp Pulse Resp B/P (MAP) Pulse Ox O2 Delivery O2 Flow Rate FiO2 01/07/18 19:22 99.9 94 18 126/70 (88) 97 Room Air 99.9 Lab Values Laboratory Tests Test 01/07/18 19:42 01/07/18 22:45 White Blood Count 12.6 x10^3/uL (4.0-11.0) H Red Blood Count 5.21 x10^6/uL (4.30-5.70) Hemoglobin 14.6 g/dL (13.0-17.5) Hematocrit 44.2 % (39.0-53.0) Mean Corpuscular Volume 85 fL (79-100) Mean Corpuscular Hemoglobin 28 pg (25-35) Mean Corpuscular Hemoglobin Concent 33 g/dL (31-37) Red Cell Distribution Width 28.4 % (11.5-14.5) H Platelet Count 704 x10^3/uL (140-400) H Neutrophils (%) (Auto) 77 % (31-73) H Lymphocytes (%) (Auto) 12 % (24-48) L Monocytes (%) (Auto) 11 % (0-9) H Eosinophils (%) (Auto) 0 % (0-3) Basophils (%) (Auto) 0 % (0-3) Neutrophils # (Auto) 9.7 x10^3uL (1.8-7.7) H Lymphocytes # (Auto) 1.5 x10^3/uL (1.0-4.8) Monocytes # (Auto) 1.4 x10^3/uL (0.0-1.1) H Eosinophils # (Auto) 0.0 x10^3/uL (0.0-0.7) Basophils # (Auto) 0.0 x10^3/uL (0.0-0.2) Platelet Estimate Increased (ADEQUATE) Anisocytosis Mod Erythrocyte Sedimentation Rate 49 (0-15) H Sodium Level 136 mmol/L (136-145) Potassium Level 3.0 mmol/L (3.5-5.1) L Chloride Level 94 mmol/L (98-107) L Carbon Dioxide Level 35 mmol/L (21-32) H Anion Gap 7 (6-14) Blood Urea Nitrogen 21 mg/dL (8-26) Creatinine 1.4 mg/dL (0.7-1.3) H Estimated GFR (Cockcroft-Gault) 60.3 BUN/Creatinine Ratio 15 (6-20) Glucose Level 118 mg/dL (70-99) H Lactic Acid Level 1.4 mmol/L (0.4-2.0) Calcium Level 9.9 mg/dL (8.5-10.1) Total Bilirubin 0.6 mg/dL (0.2-1.0) Aspartate Amino Transferase (AST) 25 U/L (15-37) Alanine Aminotransferase (ALT) 23 U/L (16-63) Alkaline Phosphatase 109 U/L (46-116) Total Protein 8.9 g/dL (6.4-8.2) H Albumin 2.8 g/dL (3.4-5.0) L Albumin/Globulin Ratio 0.5 (1.0-1.7) L Urine Collection Type Unknown Urine Color Yellow Urine Clarity Clear Urine pH 6.0 Urine Specific [place] 1.015 Urine Protein 30 mg/dL (NEG-TRACE) Urine Glucose (UA) Negative mg/dL (NEG) Urine Ketones (Stick) Negative mg/dL (NEG) Urine Blood Negative (NEG) Urine Nitrite Negative (NEG) Urine Bilirubin Negative (NEG) Urine Urobilinogen Dipstick 2.0 mg/dL (0.2 mg/dL) Urine Leukocyte Esterase Trace (NEG) Urine RBC 0 /HPF (0-2) Urine WBC 0 /HPF (0-4) Urine Squamous Epithelial Cells Occ /LPF Urine Bacteria 0 /HPF (0-FEW) Laboratory Tests 01/07/18 19:42 Laboratory Tests 01/07/18 19:42 EKG EKG [] Radiology/Procedures Radiology/Procedures [] PATIENT: ELIZABETH ROMERO ACCOUNT: [id number] : 1945 LOCATION: ER AGE: 72 SEX: M EXAM STATUS: REG ER ORD. PHYSICIAN: SHERYL WERNER APRN REASON: had a seizure like episode today PROCEDURE: CT HEAD WO CONTRAST PQRS Compliance statement: One or more of the following individualized dose reduction techniques were utilized for this examination: 1. Automated exposure control. 2. Adjustment of the mA and/or kV according to patient size. 3. Use of iterative reconstruction technique. Indication:SEIZURE TECHNIQUE: CT head without IV contrast COMPARISON:None FINDINGS: No pathologic extra-axial or intra-axial fluid collection. The ventricles and basal cisterns are within normal limits. Mild diffuse cerebral atrophy. No acute intracranial bleed. Confluent low-attenuation is seen in the periventricular and deep white matter. No focal loss of mane-white differentiation. The orbits are within normal limits. No suspicious calvarial lesion. Visualized paranasal sinuses and mastoid air cells are clear. IMPRESSION: 1. No acute intracranial process. 2. Confluent moderate White matter changes most likely secondary to chronic microvascular ischemic disease. Electronically signed by: Hansel Fine DO (01/07/2018 8:59 PM) [facility] DICTATED and SIGNED BY: HANSEL FINE DO DATE: 01/07/182055 Course & Med Decision Making Course & Med Decision Making Pertinent Labs and Imaging studies reviewed. (See chart for details) The patient is receiving potassium in the emergency department. ER physician attending note: 12:30 AM: 01/08/18: Patient was seen by nurse practitioner, who had left the department after the completion of her shift, and was waiting to be discharged. While waiting to discharge the patient had another "episode", witnessed by staff, where he had drooling out of the right side of his mouth and a right-sided gaze fixed, along with what look like a fine tremor in his hand. He slowly had returned to his baseline mental status, he is currently without any neurological deficit and is able to follow commands. His episodes are suspicious for focal seizure activity. He has not had any seizures in the past. At this point given this recurrent episodes the patient be admitted to the hospitalist, who accepted admission, for further evaluation and neurologic consultation. Dragon Disclaimer Dragon Disclaimer This electronic medical record was generated, in whole or in part, using a voice recognition dictation system. Departure Departure Impression: Primary Impression: Seizure-like activity Additional Impression: Open wound of left knee Disposition: ADMITTED INPATIENT Condition: STABLE Referrals: KARINA MCGEE MD (PCP) Patient Instructions: Wound Care, [id number] Additional Instructions: Follow-up for a recheck with your primary care provider tomorrow. The patient's potassium was still low. We did replace his replace potassium in the emergency department. If worsening return to the emergency department. Problem Qualifiers SHERYL WERNER APRN Jan 07, 2018 23:03 EFREM REESE MD Jan 08, 2018 00:33
[2018-01-07 23:05] LABS: BACTERIA,URINE 0 /HPF (0-FEW); RBC,URINE 0 /HPF (0-2); SQUAMOUS EPITHELIAL CELL,UR OCC /LPF; WBC,URINE 0 /HPF (0-4)
[2018-01-08] MEDS ORDERED: ASPIRIN 325 MG TABLET PO ONE (01:00)
[2018-01-08] MEDS: levETIRAcetam 500 MG in IV DEXTROSE 5% 100ML 100 ML IV SCH ×3 (01:02→21:01)
[2018-01-08 03:00] VITALS: BP 107/57
[2018-01-08] MEDS ORDERED: TRAV5DRO OU (05:05)
[2018-01-08 07:00] VITALS: BP 109/59
--- NOTE | 2018-01-08 07:18 | EKG ---
[facility] [address] [place] [address] Test Date: 2018-01-07 Test Time: 19:30:13 Pat Name: ELIZABETH ROMERO Department: Room: 2 Gender: M Risk Analyst: : 1945 Requested By: SHERYL WERNER Order Number: [id number] Reading MD: Wayne Ramirez MD Measurements Intervals [place] Rate: 93 P: -21 MS: 146 QRS: -63 QRSD: 102 T: 27 QT: 418 QTc: 523 Interpretive Statements SINUS RHYTHM NON-SPECIFIC ST/T CHANGES PROLONGED QT Electronically Signed On 01-11-2018 11:03:34 CDT by Wayne Ramirez MD
[2018-01-08] MEDS ORDERED: HYDR500C16 PO ×2 (07:43)
[2018-01-08] MEDS ORDERED: HYDROXYUREA 500 MG CAPSULE PO SCH (09:00)
[2018-01-08] MEDS ORDERED: ONDANSETRON PF 4 MG/2 ML VIAL. IV PRN (09:30)
[2018-01-08] MEDS ORDERED: IBUPROFEN 400 MG TABLET. PO PRN (09:30)
[2018-01-08] MEDS ORDERED: ACETAMINOPHEN 500 MG TABLET PO PRN (09:30)
[2018-01-08] MEDS ORDERED: ONDANSETRON ODT 4 MG TAB.RAPDIS. PO PRN (09:30)
[2018-01-08] MEDS ORDERED: ACETAMINOPHEN/CODEINE 300/30MG TABLET. PO PRN (09:30)
[2018-01-08 11:00] VITALS: BP 104/59
[2018-01-08] MEDS: LACTOBACILLUS RHAMNOSUS GG 1 CAPSULE. PO SCH ×2 (12:00→21:02)
--- NOTE | 2018-01-08 12:37 | PDOC1 ---
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 He comes in for a different reason right now. He is a 72-year-old -[place] male who was thought to have what sounds like absence seizure by the family. This is new to him. He was about to be discharged from the ER when he went to another focal seizure with LOC witnessed by ER hence admitted with neurology on board. He is now having a sleep study/EEG done. I do believe he is done with PICC line/IV abx for the left knee recurrent infection. His MAXIMUM TEMPERATURE is 100.6 looking at the chart. ESR is 49. Hemoglobin stable with a platelets of 704 and a WBC 12. We will see post EEG. Jac onc was consulted for the high platelets - last time tehy were on board they were ruling out myeloproliferative d/o with JAK2 mutation tests Past Medical History Cardiovascular: No pertinent hx, HTN Musculoskeletal: Other Infectious disease: Other (bacteremia, chornic knee infections needing IV abx weeks) Past Surgical History Past Surgical History: Total knee replacement Family History Family History: Hypertension, Stroke Social History Smoke: No ALCOHOL: none Drugs: None Current Problem List Problem List Problems Medical Problems: (1) Seizure-like activity Status: Acute Current Medications Current Medications Current Medications Potassium Chloride/Water 50 ml @ 50 mls/hr 1X ONCE IV ; Start 01/07/18 at 21: 45; Stop 01/07/18 at 22:44; Status UNV Potassium Chloride/Sodium Chloride 1,000 ml @ 200 mls/hr 1X ONCE IV Last administered on 01/07/18at 22:00; Start 01/07/18 at 22:00; Stop 01/08/18 at 02 :59; Status DC Aspirin (Silvino Aspirin) 325 mg 1X ONCE PO ; Start 01/08/18 at 01:00; Stop at 01:01; Status DC Levetiracetam 500 mg/Dextrose 105 ml @ 420 mls/hr Q12HR IV Last administered on 01/08/18at 09:27; Start 01/08/18 at 01:00 Lorazepam (Ativan) 2 mg PRN Q4HRS PRN IV ANXIETY / AGITATION; Start 01/08/18 at 09:30 Acetaminophen (Tylenol) 500 mg PRN Q6HRS PRN PO MILD PAIN / TEMP; Start at 09:30 Acetaminophen/ Codeine Phosphate (Tylenol #3) 1 tab PRN Q6HRS PRN PO PAIN; Start 01/08/18 at 09:30 Ibuprofen (Motrin) 400 mg PRN Q6HRS PRN PO INFLAMMATION; Start 01/08/18 at 09: 30 Ondansetron HCl (Zofran) 4 mg PRN Q6HRS PRN IV NAUSEA/VOMITING; Start at 09:30 Ondansetron HCl (Zofran Odt) 4 mg PRN Q6HRS PRN PO NAUSEA/VOMITING; Start at 09:30 Allopurinol (Zyloprim) 300 mg DAILY PO ; Start 01/08/18 at 12:00 Aspirin (Silvino Aspirin) 325 mg BID PO ; Start 01/08/18 at 12:00 Docusate Sodium (Colace) 100 mg BID PO ; Start 01/08/18 at 12:00 Ferrous Sulfate (Feosol) 325 mg DAILY PO ; Start 01/08/18 at 12:00 Tamsulosin HCl (Flomax) 0.4 mg QHS PO ; Start 01/08/18 at 21:00 Triamterene/HCTZ (Maxzide 37.5/ 25mg) 1 tab DAILY PO ; Start 01/08/18 at 12:00 Vitamin D (Vitamin D3) 2,000 unit DAILY PO ; Start 01/08/18 at 12:00 Hydroxyurea (Hydrea) 1,500 mg TuThSa PO ; Start 01/09/18 at 09:00 Hydroxyurea (Hydrea) 2,000 mg SuMoWeFr PO ; Start 01/08/18 at 09:00 Lactobacillus Rhamnosus (Culturelle) 2 cap BID PO ; Start 01/08/18 at 12:00 Multivitamins (Thera M Plus) 1 tab DAILY PO ; Start 01/08/18 at 12:00 Non-Formulary Medication (Nifedipine (Nifedipine Er)) 90 mg DAILY PO ; Start at 09:00; Status UNV Latanoprost (Xalatan) 1 drop QHS OU ; Start 01/08/18 at 21:00 Latanoprost (Xalatan) 1 drop QHS OU ; Start 01/08/18 at 21:00 Active Scripts Active Flomax (Tamsulosin Hcl) 0.4 Mg Cap.er.24h 0.4 Mg PO QHS Reported Hydroxyurea 500 Mg Capsule 1,500 Mg PO TUTHSA Hydroxyurea 500 Mg Capsule 2,000 Mg PO SUMOWEFR Travatan Z (Travoprost) 5 Ml Drops 5 Ml OU QHS Multivitamins (Multivitamin) 1 Each Tablet 1 Tab PO DAILY Iron (Ferrous Sulfate) 325 Mg Tablet 325 Mg PO DAILY Stool Softener (Docusate Sodium) 100 Mg Capsule 100 Mg PO BID Culturelle (Lactobacillus Rhamnosus Gg) 1 Each Capsule 2 Each PO BID Aspirin 325 Mg Tablet 1 Tab PO BID Vitamin D (Cholecalciferol (Vitamin D3)) 2,000 Unit Capsule 2,000 Unit PO DAILY Nifedipine Er (Nifedipine) 30 Mg Tab.er.24 90 Mg PO DAILY Triamterene-Hctz 37.5-25 Mg Tb (Triamterene/Hydrochlorothiazid) 1 Each Tablet 1 Tab PO DAILY Allopurinol 300 Mg Tablet 300 Mg PO DAILY Allergies Allergies: Coded Allergies: No Known Drug Allergies (Unverified , 08/31/17) ROS Review of System Per history of present illness, the rest of ROS 14 point negative Physical Exam General: Alert, Oriented X3, Cooperative, No acute distress HEENT: Atraumatic, PERRLA, EOMI Lungs: Clear to auscultation, Normal air movement Heart: S1S2, RRR, no thrills, no rubs, no gallops, no murmurs Cardiovascular: S1, S2 Abdomen: Normal bowel sounds, Soft, No tenderness, No hepatosplenomegaly, No masses Male Genitals Exam: normal genitalia, normal prostate PELVIC: Nml ext genitalia Extremities: No clubbing, No cyanosis, No edema, Normal pulses, No tenderness/ swelling Skin: No rashes, No breakdown, No significant lesion Neuro: Normal gait, Normal speech, Strength at 5/5 X4 ext, Normal tone, Sensation intact, Cranial nerves 3-12 NL, Reflexes 2+ Psych/Mental Status: Mental status NL, Mood NL Vitals Vitals Vital Signs Date Time Temp Pulse Resp B/P (MAP) Pulse Ox O2 Delivery O2 Flow Rate FiO2 01/08/18 11:00 98.1 61 20 104/59 (74) 99 Room Air 98.1 Labs Labs Laboratory Tests Test 01/07/18 19:42 01/07/18 22:45 White Blood Count 12.6 x10^3/uL (4.0-11.0) Red Blood Count 5.21 x10^6/uL (4.30-5.70) Hemoglobin 14.6 g/dL (13.0-17.5) Hematocrit 44.2 % (39.0-53.0) Mean Corpuscular Volume 85 fL (79-100) Mean Corpuscular Hemoglobin 28 pg (25-35) Mean Corpuscular Hemoglobin Concent 33 g/dL (31-37) Red Cell Distribution Width 28.4 % (11.5-14.5) Platelet Count 704 x10^3/uL (140-400) Neutrophils (%) (Auto) 77 % (31-73) Lymphocytes (%) (Auto) 12 % (24-48) Monocytes (%) (Auto) 11 % (0-9) Eosinophils (%) (Auto) 0 % (0-3) Basophils (%) (Auto) 0 % (0-3) Neutrophils # (Auto) 9.7 x10^3uL (1.8-7.7) Lymphocytes # (Auto) 1.5 x10^3/uL (1.0-4.8) Monocytes # (Auto) 1.4 x10^3/uL (0.0-1.1) Eosinophils # (Auto) 0.0 x10^3/uL (0.0-0.7) Basophils # (Auto) 0.0 x10^3/uL (0.0-0.2) Platelet Estimate Increased (ADEQUATE) Anisocytosis Mod Erythrocyte Sedimentation Rate 49 (0-15) Sodium Level 136 mmol/L (136-145) Potassium Level 3.0 mmol/L (3.5-5.1) Chloride Level 94 mmol/L (98-107) Carbon Dioxide Level 35 mmol/L (21-32) Anion Gap 7 (6-14) Blood Urea Nitrogen 21 mg/dL (8-26) Creatinine 1.4 mg/dL (0.7-1.3) Estimated GFR (Cockcroft-Gault) 60.3 BUN/Creatinine Ratio 15 (6-20) Glucose Level 118 mg/dL (70-99) Lactic Acid Level 1.4 mmol/L (0.4-2.0) Calcium Level 9.9 mg/dL (8.5-10.1) Total Bilirubin 0.6 mg/dL (0.2-1.0) Aspartate Amino Transf (AST/SGOT) 25 U/L (15-37) Alanine Aminotransferase (ALT/SGPT) 23 U/L (16-63) Alkaline Phosphatase 109 U/L (46-116) Total Protein 8.9 g/dL (6.4-8.2) Albumin 2.8 g/dL (3.4-5.0) Albumin/Globulin Ratio 0.5 (1.0-1.7) Urine Collection Type Unknown Urine Color Yellow Urine Clarity Clear Urine pH 6.0 Urine Specific [place] 1.015 Urine Protein 30 mg/dL (NEG-TRACE) Urine Glucose (UA) Negative mg/dL (NEG) Urine Ketones (Stick) Negative mg/dL (NEG) Urine Blood Negative (NEG) Urine Nitrite Negative (NEG) Urine Bilirubin Negative (NEG) Urine Urobilinogen Dipstick 2.0 mg/dL (0.2 mg/dL) Urine Leukocyte Esterase Trace (NEG) Urine RBC 0 /HPF (0-2) Urine WBC 0 /HPF (0-4) Urine Squamous Epithelial Cells Occ /LPF Urine Bacteria 0 /HPF (0-FEW) Laboratory Tests Test 01/07/18 19:42 01/07/18 22:45 White Blood Count 12.6 x10^3/uL (4.0-11.0) Red Blood Count 5.21 x10^6/uL (4.30-5.70) Hemoglobin 14.6 g/dL (13.0-17.5) Hematocrit 44.2 % (39.0-53.0) Mean Corpuscular Volume 85 fL (79-100) Mean Corpuscular Hemoglobin 28 pg (25-35) Mean Corpuscular Hemoglobin Concent 33 g/dL (31-37) Red Cell Distribution Width 28.4 % (11.5-14.5) Platelet Count 704 x10^3/uL (140-400) Neutrophils (%) (Auto) 77 % (31-73) Lymphocytes (%) (Auto) 12 % (24-48) Monocytes (%) (Auto) 11 % (0-9) Eosinophils (%) (Auto) 0 % (0-3) Basophils (%) (Auto) 0 % (0-3) Neutrophils # (Auto) 9.7 x10^3uL (1.8-7.7) Lymphocytes # (Auto) 1.5 x10^3/uL (1.0-4.8) Monocytes # (Auto) 1.4 x10^3/uL (0.0-1.1) Eosinophils # (Auto) 0.0 x10^3/uL (0.0-0.7) Basophils # (Auto) 0.0 x10^3/uL (0.0-0.2) Platelet Estimate Increased (ADEQUATE) Anisocytosis Mod Erythrocyte Sedimentation Rate 49 (0-15) Sodium Level 136 mmol/L (136-145) Potassium Level 3.0 mmol/L (3.5-5.1) Chloride Level 94 mmol/L (98-107) Carbon Dioxide Level 35 mmol/L (21-32) Anion Gap 7 (6-14) Blood Urea Nitrogen 21 mg/dL (8-26) Creatinine 1.4 mg/dL (0.7-1.3) Estimated GFR (Cockcroft-Gault) 60.3 BUN/Creatinine Ratio 15 (6-20) Glucose Level 118 mg/dL (70-99) Lactic Acid Level 1.4 mmol/L (0.4-2.0) Calcium Level 9.9 mg/dL (8.5-10.1) Total Bilirubin 0.6 mg/dL (0.2-1.0) Aspartate Amino Transf (AST/SGOT) 25 U/L (15-37) Alanine Aminotransferase (ALT/SGPT) 23 U/L (16-63) Alkaline Phosphatase 109 U/L (46-116) Total Protein 8.9 g/dL (6.4-8.2) Albumin 2.8 g/dL (3.4-5.0) Albumin/Globulin Ratio 0.5 (1.0-1.7) Urine Collection Type Unknown Urine Color Yellow Urine Clarity Clear Urine pH 6.0 Urine Specific [place] 1.015 Urine Protein 30 mg/dL (NEG-TRACE) Urine Glucose (UA) Negative mg/dL (NEG) Urine Ketones (Stick) Negative mg/dL (NEG) Urine Blood Negative (NEG) Urine Nitrite Negative (NEG) Urine Bilirubin Negative (NEG) Urine Urobilinogen Dipstick 2.0 mg/dL (0.2 mg/dL) Urine Leukocyte Esterase Trace (NEG) Urine RBC 0 /HPF (0-2) Urine WBC 0 /HPF (0-4) Urine Squamous Epithelial Cells Occ /LPF Urine Bacteria 0 /HPF (0-FEW) VTE Prophylaxis Ordered VTE Prophylaxis Devices: Yes VTE Pharmacological Prophylaxi: Yes Assessment/Plan Assessment/Plan ABsence versus focal complex seizure with LOC-new onset, - EEG now 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
[2018-01-08] MEDS ORDERED: GADOBUTROL 10 MMOL/10 ML VIAL IV ONE (13:30)
--- NOTE | 2018-01-08 14:38 | RAD ---
MRI of the Brain without and with Contrast 01/08/2018 Clinical History: New onset of seizures. Technique: Unenhanced T1-weighted sagittal and axial and FLAIR, T2-weighted, gradient echo and diffusion-weighted axial images of the brain were obtained. Additionally thin section FLAIR coronal images of the temporal lobes were obtained. After the intravenous administration of 10 cc of Gadavist, enhanced T1-weighted axial and coronal images of the brain were obtained. Findings: Comparison is made to the patient's CT scan of the head dated 01/07/2018. Some of the images are degraded by patient motion. There is generalized parenchymal atrophy. Patchy, confluent and multiple focal areas of abnormally increased signal intensity are seen within the periventricular and subcortical white matter of both cerebral hemispheres on the FLAIR and T2-weighted images consistent with areas of extensive small vessel ischemic disease. No acute parenchymal abnormality is seen. No abnormal area of contrast enhancement is noted. No extra-axial fluid collection is seen. There is no MRI evidence of acute ischemia/infarction. The paranasal sinuses are essentially clear. Normal flow voids are seen within the major vascular structures surrounding the brain parenchyma. Impression: No acute parenchymal abnormality is seen. Electronically signed by: Marquez Braun MD (01/08/2018 2:36 PM) [id number]
[2018-01-08] MEDS: TRIAMTERENE/HCTZ 37.5/25MG TABLET. PO SCH (14:39)
[2018-01-08] MEDS: NIFEDIPINE 90 MG PO SCH (14:39)
[2018-01-08] MEDS: ASPIRIN 325 MG TABLET PO SCH ×2 (14:39→21:01)
[2018-01-08] MEDS: DOCUSATE SODIUM 100 MG CAPSULE. PO SCH ×2 (14:42→21:02)
[2018-01-08] MEDS: FERROUS SULFATE 325 MG TABLET. PO SCH (14:43)
[2018-01-08] MEDS: ALLOPURINOL 300 MG TABLET. PO SCH (14:43)
[2018-01-08] MEDS: CHOLECALCIFEROL (VITAMIN D3) 1,000 UNIT TABLET PO SCH (14:43)
[2018-01-08] MEDS: MULTIVITAMIN with MINERAL TABLET. PO SCH (14:44)
--- NOTE | 2018-01-08 14:50 | EEG ---
DATE OF SERVICE: 01/08/2018 EEG NUMBER: [id number]. OBJECTIVE: This is a 72-year-old female patient with new onset seizure. EEG was requested to evaluate seizure activity. METHODS: Twenty electrodes were applied according to the international 10-20 electrode placement system. EKG monitoring, hyperventilation, intermittent photic stimulation, monopolar and bipolar montages are routinely utilized. The record was obtained on a digital system with video monitoring. FINDINGS: 1. Background: The patient was recorded in the awake and drowsy states. No actual sleep state was recorded. The overall background amplitude is 10-25 microvolts. A posterior dominant rhythm of 7-8 Hz is observed. 2. Abnormalities: No specific epileptiform discharge or electrographic seizure is seen. No focal or diffuse slowing. 3. Activation: Hyperventilation was performed with fair efforts and normal response. Intermittent photic stimulation was performed with photic driving. No specific epileptiform discharge or electrographic seizure induced by hyperventilation or intermittent photic stimulation. IMPRESSION: This EEG is a borderline study for the awake and drowsy states. No sleep state was recorded. The posterior dominant rhythm of 7-8 Hz is mildly slow for age, but most time is in the 8 Hz range. No focal, lateralizing, specific epileptiform discharge, or electrographic seizure is seen. MUSHTAQ GARCIA MD DR: SAMANTA/judith JOB#: [id number] / [id number] ANJANA
[2018-01-08 15:00] VITALS: BP 131/69
[2018-01-08] MEDS ORDERED: FOLI1TAB16 PO (16:38)
--- NOTE | 2018-01-08 18:36 | PDOC2 ---
NEUROLOGY CONSULT Date of Admission Date of Admission DATE: 01/08/18 TIME: 18:22 Reason for Consult Reason for Consult: IMPRESSION: Metabolic encephalopathy. Seizure or seizure like episode. Syncopal spell? Cognitive function impairment. Tremors. HTN. Thrombocytosis. Chronic left knee infection wound. RECOMMENDATIONS/PLAN: Brain MRI w/wo contrast + seizure protocol performed, negative. Lab: see orders. He was started Keppra 500 mg by his PCP, continue. Please consult Cardiology for syncopal spell. Treat medical diseases. Wound care. EEG on 01/08/18: No epileptiform discharges or electrographic seizures. The posterior dominant rhythm of 7-8 Hz/s is slow for age. HISTORY OF THE PRESENT ILLNESS: 72-y-old AA male patient with above medical diseases and prolonged left knee problems as infection and unhealing wound since 06/2017. He had an episode as altered mental status with UE tremor like movements for about 30 seconds. His stated he had another one in the ER for about 2 minutes but no ER documentation note. Past Medical History Cardiovascular: No pertinent hx, HTN Musculoskeletal: Other Infectious disease: Other (bacteremia, chornic knee infections needing IV abx weeks) Past Surgical History Total left knee replacement Family History Hypertension, Stroke Social History Smoke: No ALCOHOL: none Drugs: None ALLERGY: NKDA MEDICATIONS: Refer to MAR REVIEW OF SYSTEMS: Constitutional: No malnutrition, weight loss, cachexia. Head: No traumatic brain or head injury. Skin: No edema, or rash. Ear: No infection. Eyes: No vision loss or color blindness. Nose: No bleeding or purulent discharges. Hearing: No hearing decrease. Neck: No injury. Cardiac: HTN.. Pulmonary: No COPD. GI: No GI ulcer, GI bleeding. Urinary/genital: No dysuria, incontinence, urinary retention. Endocrinologic: No cousin face, craniofacial dysmorphism, polydactyly, goiter. Skeletomuscular: No muscular atrophy, deformity. Neurological: see HP. Psychiatric: Denies drug use/abuse. Otherwise, not [id number] review of systems. PHYSICAL EXAMINATION: General appearance is in subacute distress. HEENT: Normocephalic and nontraumatic. Eyes, nose, ears, and throat are unremarkable. Neck is supple. No lymphadenopathy. No crepitus. Cardiovascular: S1, S2, regular rate and rhythm. Pulmonary: Clear to auscultation bilaterally. Abdomen: Bowel sounds are positive. Abdomen is soft, nontender, and nondistended. Extremities: Left knee wound. No restriction of range of motion NEUROLOGICAL EXAMINATION: Awake. Not oriented to time, place but knew person. PERRL. EOMI. CN: no focal findings. Muscle tone: within normal. Muscle strength: 5- UE, 4- LE. DTR: 2 UE, 1+ at right knee, left knee not examed. Plantar reflex: Flexor response bilaterally Gait: Unable to walk. Sensory exam: no abnormal findings except left knee area pain. No cerebellar signs elicited. F-T-N test accurate. Current Medications Current Medications Current Medications Potassium Chloride/Water 50 ml @ 50 mls/hr 1X ONCE IV ; Start 01/07/18 at 21: 45; Stop 01/07/18 at 22:44; Status UNV Potassium Chloride/Sodium Chloride 1,000 ml @ 200 mls/hr 1X ONCE IV Last administered on 01/07/18at 22:00; Start 01/07/18 at 22:00; Stop 01/08/18 at 02 :59; Status DC Aspirin (Silvino Aspirin) 325 mg 1X ONCE PO ; Start 01/08/18 at 01:00; Stop at 01:01; Status DC Levetiracetam 500 mg/Dextrose 105 ml @ 420 mls/hr Q12HR IV Last administered on 01/08/18at 09:27; Start 01/08/18 at 01:00 Lorazepam (Ativan) 2 mg PRN Q4HRS PRN IV ANXIETY / AGITATION; Start 01/08/18 at 09:30 Acetaminophen (Tylenol) 500 mg PRN Q6HRS PRN PO MILD PAIN / TEMP; Start at 09:30 Acetaminophen/ Codeine Phosphate (Tylenol #3) 1 tab PRN Q6HRS PRN PO PAIN; Start 01/08/18 at 09:30 Ibuprofen (Motrin) 400 mg PRN Q6HRS PRN PO INFLAMMATION; Start 01/08/18 at 09: 30 Ondansetron HCl (Zofran) 4 mg PRN Q6HRS PRN IV NAUSEA/VOMITING; Start at 09:30 Ondansetron HCl (Zofran Odt) 4 mg PRN Q6HRS PRN PO NAUSEA/VOMITING; Start at 09:30 Allopurinol (Zyloprim) 300 mg DAILY PO Last administered on 01/08/18 14:43; Start 01/08/18 at 12:00 Aspirin (Silvino Aspirin) 325 mg BID PO Last administered on 01/08/18at 14:39; Start 01/08/18 at 12:00 Docusate Sodium (Colace) 100 mg BID PO Last administered on 01/08/18 14:42; Start 01/08/18 at 12:00 Ferrous Sulfate (Feosol) 325 mg DAILY PO Last administered on 01/08/18 14:43 ; Start 01/08/18 at 12:00 Tamsulosin HCl (Flomax) 0.4 mg QHS PO ; Start 01/08/18 at 21:00 Triamterene/HCTZ (Maxzide 37.5/ 25mg) 1 tab DAILY PO Last administered on 01/08 14:39; Start 01/08/18 at 12:00 Vitamin D (Vitamin D3) 2,000 unit DAILY PO Last administered on 01/08/18at 14: 43; Start 01/08/18 at 12:00 Hydroxyurea (Hydrea) 1,500 mg TuThSa PO ; Start 01/09/18 at 09:00 Hydroxyurea (Hydrea) 2,000 mg SuMoWeFr PO Last administered on 01/08/18at 14:41 ; Start 01/08/18 at 09:00 Lactobacillus Rhamnosus (Culturelle) 2 cap BID PO ; Start 01/08/18 at 12:00 Multivitamins (Thera M Plus) 1 tab DAILY PO Last administered on 01/08/18at 14: 44; Start 01/08/18 at 12:00 Non-Formulary Medication (Nifedipine (Nifedipine Er)) 90 mg DAILY PO Last administered on 01/08/18 14:39; Start 01/08/18 at 14:00 Latanoprost (Xalatan) 1 drop QHS OU ; Start 01/08/18 at 21:00 Latanoprost (Xalatan) 1 drop QHS OU ; Start 01/08/18 at 21:00 Gadobutrol (Gadavist) 10 mmol 1X ONCE IV Last administered on 01/08/18at 13:33 ; Start 01/08/18 at 13:30; Stop 01/08/18 at 13:31; Status DC Active Scripts Active Flomax (Tamsulosin Hcl) 0.4 Mg Cap.er.24h 0.4 Mg PO QHS Reported Folic Acid 1 Mg Tablet 1 Tab PO DAILY Hydroxyurea 500 Mg Capsule 1,500 Mg PO TUTHSA Hydroxyurea 500 Mg Capsule 2,000 Mg PO SUMOWEFR Travatan Z (Travoprost) 5 Ml Drops 5 Ml OU QHS Multivitamins (Multivitamin) 1 Each Tablet 1 Tab PO DAILY Iron (Ferrous Sulfate) 325 Mg Tablet 325 Mg PO DAILY Stool Softener (Docusate Sodium) 100 Mg Capsule 100 Mg PO BID Culturelle (Lactobacillus Rhamnosus Gg) 1 Each Capsule 2 Each PO BID Aspirin 325 Mg Tablet 1 Tab PO BID Vitamin D (Cholecalciferol (Vitamin D3)) 2,000 Unit Capsule 2,000 Unit PO DAILY Nifedipine Er (Nifedipine) 30 Mg Tab.er.24 90 Mg PO DAILY Triamterene-Hctz 37.5-25 Mg Tb (Triamterene/Hydrochlorothiazid) 1 Each Tablet 1 Tab PO DAILY Allopurinol 300 Mg Tablet 300 Mg PO DAILY Allergies Allergies: Allergies Coded Allergies Type Severity Reaction Last Updated Verified No Known Drug Allergies 08/31/17 No ROS Review of System The patient denies any associated fevers, chills, headache, ear pain, rhinorrhea , sore throat, stiff neck, productive cough, chest pain, shortness of breath, back or flank pain, abdominal pain, nausea, vomiting, diarrhea, constipation, dysuria, rash, numbness, weakness, tingling, incontinence, difficulty ambulating, or diaphoresis. Physical Exam Physical Exam General: Well developed, well nourished, no acute distress, well appearing HEENT: Pupils equally round and reactive to light, EOMI, no discharge, normal conjunctiva Neck: Supple, no nuchal rigidity, no JVD, trachea midline, no tenderness Cardiac: RRR, no murmurs, no gallops, no rubs Chest/Lungs: CTAB, no wheeze, no rhonchi, no crackles Abdomen: soft, non-distended, no guarding, no peritoneal signs, non-tender Back: No tenderness Extremities: no edema, pulses intact, non-tender,capillary refill <3 sec bilateral upper and lower extremities, Neuro: Alert and oriented x 4, no focal deficits, normal speech Vitals Vitals: Vital Signs Date Time Temp Pulse Resp B/P (MAP) Pulse Ox O2 Delivery O2 Flow Rate FiO2 01/08/18 15:00 97.5 61 20 131/69 (89) 96 Room Air 97.5 Labs Labs Laboratory Tests Test 01/07/18 19:42 01/07/18 22:45 01/08/18 11:40 White Blood Count 12.6 x10^3/uL (4.0-11.0) Red Blood Count 5.21 x10^6/uL (4.30-5.70) Hemoglobin 14.6 g/dL (13.0-17.5) Hematocrit 44.2 % (39.0-53.0) Mean Corpuscular Volume 85 fL (79-100) Mean Corpuscular Hemoglobin 28 pg (25-35) Mean Corpuscular Hemoglobin Concent 33 g/dL (31-37) Red Cell Distribution Width 28.4 % (11.5-14.5) Platelet Count 704 x10^3/uL (140-400) Neutrophils (%) (Auto) 77 % (31-73) Lymphocytes (%) (Auto) 12 % (24-48) Monocytes (%) (Auto) 11 % (0-9) Eosinophils (%) (Auto) 0 % (0-3) Basophils (%) (Auto) 0 % (0-3) Neutrophils # (Auto) 9.7 x10^3uL (1.8-7.7) Lymphocytes # (Auto) 1.5 x10^3/uL (1.0-4.8) Monocytes # (Auto) 1.4 x10^3/uL (0.0-1.1) Eosinophils # (Auto) 0.0 x10^3/uL (0.0-0.7) Basophils # (Auto) 0.0 x10^3/uL (0.0-0.2) Platelet Estimate Increased (ADEQUATE) Anisocytosis Mod Erythrocyte Sedimentation Rate 49 (0-15) Sodium Level 136 mmol/L (136-145) Potassium Level 3.0 mmol/L (3.5-5.1) Chloride Level 94 mmol/L (98-107) Carbon Dioxide Level 35 mmol/L (21-32) Anion Gap 7 (6-14) Blood Urea Nitrogen 21 mg/dL (8-26) Creatinine 1.4 mg/dL (0.7-1.3) Estimated GFR (Cockcroft-Gault) 60.3 BUN/Creatinine Ratio 15 (6-20) Glucose Level 118 mg/dL (70-99) Lactic Acid Level 1.4 mmol/L (0.4-2.0) Calcium Level 9.9 mg/dL (8.5-10.1) Total Bilirubin 0.6 mg/dL (0.2-1.0) Aspartate Amino Transf (AST/SGOT) 25 U/L (15-37) Alanine Aminotransferase (ALT/SGPT) 23 U/L (16-63) Alkaline Phosphatase 109 U/L (46-116) Total Protein 8.9 g/dL (6.4-8.2) Albumin 2.8 g/dL (3.4-5.0) Albumin/Globulin Ratio 0.5 (1.0-1.7) Urine Collection Type Unknown Urine Color Yellow Urine Clarity Clear Urine pH 6.0 Urine Specific [place] 1.015 Urine Protein 30 mg/dL (NEG-TRACE) Urine Glucose (UA) Negative mg/dL (NEG) Urine Ketones (Stick) Negative mg/dL (NEG) Urine Blood Negative (NEG) Urine Nitrite Negative (NEG) Urine Bilirubin Negative (NEG) Urine Urobilinogen Dipstick 2.0 mg/dL (0.2 mg/dL) Urine Leukocyte Esterase Trace (NEG) Urine RBC 0 /HPF (0-2) Urine WBC 0 /HPF (0-4) Urine Squamous Epithelial Cells Occ /LPF Urine Bacteria 0 /HPF (0-FEW) Vitamin B12 Level 828 pg/mL (247-911) Thyroid Stimulating Hormone (TSH) 1.486 uIU/mL (0.358-3.74) Laboratory Tests Test 01/07/18 19:42 01/07/18 22:45 01/08/18 11:40 White Blood Count 12.6 x10^3/uL (4.0-11.0) Red Blood Count 5.21 x10^6/uL (4.30-5.70) Hemoglobin 14.6 g/dL (13.0-17.5) Hematocrit 44.2 % (39.0-53.0) Mean Corpuscular Volume 85 fL (79-100) Mean Corpuscular Hemoglobin 28 pg (25-35) Mean Corpuscular Hemoglobin Concent 33 g/dL (31-37) Red Cell Distribution Width 28.4 % (11.5-14.5) Platelet Count 704 x10^3/uL (140-400) Neutrophils (%) (Auto) 77 % (31-73) Lymphocytes (%) (Auto) 12 % (24-48) Monocytes (%) (Auto) 11 % (0-9) Eosinophils (%) (Auto) 0 % (0-3) Basophils (%) (Auto) 0 % (0-3) Neutrophils # (Auto) 9.7 x10^3uL (1.8-7.7) Lymphocytes # (Auto) 1.5 x10^3/uL (1.0-4.8) Monocytes # (Auto) 1.4 x10^3/uL (0.0-1.1) Eosinophils # (Auto) 0.0 x10^3/uL (0.0-0.7) Basophils # (Auto) 0.0 x10^3/uL (0.0-0.2) Platelet Estimate Increased (ADEQUATE) Anisocytosis Mod Erythrocyte Sedimentation Rate 49 (0-15) Sodium Level 136 mmol/L (136-145) Potassium Level 3.0 mmol/L (3.5-5.1) Chloride Level 94 mmol/L (98-107) Carbon Dioxide Level 35 mmol/L (21-32) Anion Gap 7 (6-14) Blood Urea Nitrogen 21 mg/dL (8-26) Creatinine 1.4 mg/dL (0.7-1.3) Estimated GFR (Cockcroft-Gault) 60.3 BUN/Creatinine Ratio 15 (6-20) Glucose Level 118 mg/dL (70-99) Lactic Acid Level 1.4 mmol/L (0.4-2.0) Calcium Level 9.9 mg/dL (8.5-10.1) Total Bilirubin 0.6 mg/dL (0.2-1.0) Aspartate Amino Transf (AST/SGOT) 25 U/L (15-37) Alanine Aminotransferase (ALT/SGPT) 23 U/L (16-63) Alkaline Phosphatase 109 U/L (46-116) Total Protein 8.9 g/dL (6.4-8.2) Albumin 2.8 g/dL (3.4-5.0) Albumin/Globulin Ratio 0.5 (1.0-1.7) Urine Collection Type Unknown Urine Color Yellow Urine Clarity Clear Urine pH 6.0 Urine Specific [place] 1.015 Urine Protein 30 mg/dL (NEG-TRACE) Urine Glucose (UA) Negative mg/dL (NEG) Urine Ketones (Stick) Negative mg/dL (NEG) Urine Blood Negative (NEG) Urine Nitrite Negative (NEG) Urine Bilirubin Negative (NEG) Urine Urobilinogen Dipstick 2.0 mg/dL (0.2 mg/dL) Urine Leukocyte Esterase Trace (NEG) Urine RBC 0 /HPF (0-2) Urine WBC 0 /HPF (0-4) Urine Squamous Epithelial Cells Occ /LPF Urine Bacteria 0 /HPF (0-FEW) Vitamin B12 Level 828 pg/mL (247-911) Thyroid Stimulating Hormone (TSH) 1.486 uIU/mL (0.358-3.74) MUSHTAQ GARCIA MD Jan 08, 2018 18:36
[2018-01-08 19:05] VITALS: BP 110/62
[2018-01-08] MEDS ORDERED: LATANOPROST 0.005% OPHTH SOLUTION 2.5ML BOTTLE. OU SCH (21:00)
[2018-01-08] MEDS: LATANOPROST 0.005% OPHTH SOLUTION 2.5ML BOTTLE. OU SCH (21:01)
[2018-01-08] MEDS: TAMSULOSIN 0.4 MG CAP.ER.24H. PO SCH (21:01)
[2018-01-08 23:43] VITALS: BP 122/70
[2018-01-09 03:52] VITALS: BP 114/65
--- NOTE | 2018-01-09 04:29 | CONS ---
DATE OF CONSULTATION: 01/08/2018 REQUESTING PHYSICIAN: Dr. Yara Brasher. REASON FOR CONSULTATION: Essential thrombocytosis. 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 JAK2 mutation was positive on 10/13/2017. Bone marrow biopsy on 10/13/2017 was negative for leukemia or lymphoma. Bone marrow was hypercellular, but it was overall nonspecific. He has had history of thrombocytosis since 2013. His platelet count was 481,000 on 07/07/2013 and 798,000 on 12/24/2016 and 919,000 on 09/10/2017. He was started on hydroxyurea on 11/03/2017. His dose was increased on 12/29/2017 and he is currently taking 2000 mg on Thursday, Thursday, Thursday and Thursday and 1500 mg the rest of the days. He was admitted to [facility] on 01/08/2018 with seizure-like activity per his . He has also had nausea and vomiting. PAST MEDICAL HISTORY: Hypertension, left total knee arthroplasty on 07/07/2017, requiring revisions. He also has history of gout, hypertension. SOCIAL HISTORY: No smoking or alcohol abuse. FAMILY HISTORY: Negative for any primary bone marrow disorders. There is history of hypertension and stroke. REVIEW OF SYSTEMS: A 12-point review of system was performed. Pertinent positives are mentioned in the history of present illness. Rest of the system review is negative. PHYSICAL EXAMINATION: GENERAL APPEARANCE: The patient is a 72-year-old gentleman who is in no acute cardiorespiratory distress. VITAL SIGNS: Blood pressure 131/69, temperature 97.5. HEAD: Atraumatic, normocephalic. EYES: No icterus. NECK: Supple. CHEST: Bilaterally symmetrical. HEART: S1, S2 normal. ABDOMEN: Soft, nontender. CENTRAL NERVOUS SYSTEM: No focal deficits. LYMPHATICS: No lymphadenopathy. SKIN: No rashes. PSYCHOLOGIC: Mood and affect are appropriate. LABORATORY DATA: WBC 12.6, hemoglobin 14.6, platelet count 704. IMPRESSION AND PLAN: 1. 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 He was started on hydroxyurea on 11/03/2017. He is currently on 2000 mg on Thursday, Thursday, Thursday and Thursday and 1500 mg the rest of the days. Platelet count is still elevated at 704. Continue current dose and continue to monitor CBC. 2. Seizure-like activity. Per history, it does not sound like he had a typical seizure. However, I will await further workup per primary team. 3. Left total knee arthroplasty with infection, explantation and spacer placement. He will follow up with Orthopedics. PRANAV SCOTT MD DR: FARHANA/judith JOB#: [id number] / [id number]
[2018-01-09 05:23] LABS: BARBITURATES NEG (NEG); BENZODIAZEPINES NEG (NEG); CANNABINOIDS NEG (NEG); COCAINE NEG (NEG); METHADONE NEG (NEG); OPIATES NEG (NEG); PHENCYCLIDINE NEG (NEG)
[2018-01-09 05:24] LABS: AMPHETAMINE/METHAMPHETAMINE NEG (NEG)
[2018-01-09 07:40] VITALS: BP 125/68
[2018-01-09] MEDS: NIFEDIPINE 90 MG PO SCH (08:53)
[2018-01-09] MEDS: levETIRAcetam 500 MG in IV DEXTROSE 5% 100ML 100 ML IV SCH (08:53)
[2018-01-09] MEDS: MULTIVITAMIN with MINERAL TABLET. PO SCH (08:54)
[2018-01-09] MEDS: ASPIRIN 325 MG TABLET PO SCH ×2 (08:54→21:01)
[2018-01-09] MEDS: CHOLECALCIFEROL (VITAMIN D3) 1,000 UNIT TABLET PO SCH (08:54)
[2018-01-09] MEDS: FERROUS SULFATE 325 MG TABLET. PO SCH (08:54)
[2018-01-09] MEDS: TRIAMTERENE/HCTZ 37.5/25MG TABLET. PO SCH (08:54)
[2018-01-09] MEDS: ALLOPURINOL 300 MG TABLET. PO SCH (08:55)
[2018-01-09] MEDS: DOCUSATE SODIUM 100 MG CAPSULE. PO SCH ×2 (09:00→20:38)
[2018-01-09] MEDS: LACTOBACILLUS RHAMNOSUS GG 1 CAPSULE. PO SCH ×2 (09:00→21:01)
[2018-01-09] MEDS ORDERED: HYDROXYUREA 500 MG CAPSULE PO SCH (09:00)
[2018-01-09 11:03] VITALS: BP 125/76
[2018-01-09] MEDS ORDERED: LEVE500T56 PO (11:42)
--- NOTE | 2018-01-09 12:22 | PDOC ---
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 Right knee pain History of Present Illness History of Present Illness Appreciate heme onc, Kevin 2 was positive hence on hydroxyurea Platelets high but stable Patient is now complaining of right knee pain and long toenails Patient wants to go home- but wants the above issues to be addressed On Keppra 500 IV twice a day started by EEG is negative Plan: Shift to Keppra by mouth twice a day PT OT-apparently patient refused PT but the patient is now complaining of right knee pain and cannot bear weight Check a knee x-ray Continue hydroxyurea Podiatry consult, toenail clipping Discussed with at bedside Vitals Vitals Vital Signs Date Time Temp Pulse Resp B/P (MAP) Pulse Ox O2 Delivery O2 Flow Rate FiO2 01/09/18 11:03 98.8 88 19 125/76 (92) 96 Room Air 98.8 Physical Exam General: Alert, Oriented X3, Cooperative, No acute distress Heart: Regular rate, Normal S1, Normal S2 Lungs: Clear Abdomen: Normal bowel sounds, Soft, No tenderness, No hepatosplenomegaly, No masses Extremities: No clubbing, No cyanosis, No edema, Normal pulses, No tenderness/ swelling, Other (right knee limited flexion secondary to pain, no appreciable swelling or redness or warmth) Skin: No rashes, No breakdown, No significant lesion Labs LABS Laboratory Tests Test 01/09/18 03:47 Urine Opiates Screen Neg (NEG) Urine Methadone Screen Neg (NEG) Urine Barbiturates Neg (NEG) Urine Phencyclidine Screen Neg (NEG) Urine Amphetamine/Methamphetamine Neg (NEG) Urine Benzodiazepines Screen Neg (NEG) Urine Cocaine Screen Neg (NEG) Urine Cannabinoids Screen Neg (NEG) Urine Ethyl Alcohol Neg (NEG) Review of Systems Review of Systems Right knee pain, weak, the rest of otherwise 14 point negative Assessment and Plan Assessmemt and Plan Problems Medical Problems: (1) Seizure-like activity Status: Acute Comment Review of Relevant I have reviewed the following items allie (where applicable) has been applied. Labs Laboratory Tests Test 01/07/18 19:42 01/07/18 22:45 01/08/18 11:40 01/09/18 03:47 White Blood Count 12.6 x10^3/uL (4.0-11.0) Red Blood Count 5.21 x10^6/uL (4.30-5.70) Hemoglobin 14.6 g/dL (13.0-17.5) Hematocrit 44.2 % (39.0-53.0) Mean Corpuscular Volume 85 fL (79-100) Mean Corpuscular Hemoglobin 28 pg (25-35) Mean Corpuscular Hemoglobin Concent 33 g/dL (31-37) Red Cell Distribution Width 28.4 % (11.5-14.5) Platelet Count 704 x10^3/uL (140-400) Neutrophils (%) (Auto) 77 % (31-73) Lymphocytes (%) (Auto) 12 % (24-48) Monocytes (%) (Auto) 11 % (0-9) Eosinophils (%) (Auto) 0 % (0-3) Basophils (%) (Auto) 0 % (0-3) Neutrophils # (Auto) 9.7 x10^3uL (1.8-7.7) Lymphocytes # (Auto) 1.5 x10^3/uL (1.0-4.8) Monocytes # (Auto) 1.4 x10^3/uL (0.0-1.1) Eosinophils # (Auto) 0.0 x10^3/uL (0.0-0.7) Basophils # (Auto) 0.0 x10^3/uL (0.0-0.2) Platelet Estimate Increased (ADEQUATE) Anisocytosis Mod Erythrocyte Sedimentation Rate 49 (0-15) Sodium Level 136 mmol/L (136-145) Potassium Level 3.0 mmol/L (3.5-5.1) Chloride Level 94 mmol/L (98-107) Carbon Dioxide Level 35 mmol/L (21-32) Anion Gap 7 (6-14) Blood Urea Nitrogen 21 mg/dL (8-26) Creatinine 1.4 mg/dL (0.7-1.3) Estimated GFR (Cockcroft-Gault) 60.3 BUN/Creatinine Ratio 15 (6-20) Glucose Level 118 mg/dL (70-99) Lactic Acid Level 1.4 mmol/L (0.4-2.0) Calcium Level 9.9 mg/dL (8.5-10.1) Total Bilirubin 0.6 mg/dL (0.2-1.0) Aspartate Amino Transf (AST/SGOT) 25 U/L (15-37) Alanine Aminotransferase (ALT/SGPT) 23 U/L (16-63) Alkaline Phosphatase 109 U/L (46-116) Total Protein 8.9 g/dL (6.4-8.2) Albumin 2.8 g/dL (3.4-5.0) Albumin/Globulin Ratio 0.5 (1.0-1.7) Urine Collection Type Unknown Urine Color Yellow Urine Clarity Clear Urine pH 6.0 Urine Specific [place] 1.015 Urine Protein 30 mg/dL (NEG-TRACE) Urine Glucose (UA) Negative mg/dL (NEG) Urine Ketones (Stick) Negative mg/dL (NEG) Urine Blood Negative (NEG) Urine Nitrite Negative (NEG) Urine Bilirubin Negative (NEG) Urine Urobilinogen Dipstick 2.0 mg/dL (0.2 mg/dL) Urine Leukocyte Esterase Trace (NEG) Urine RBC 0 /HPF (0-2) Urine WBC 0 /HPF (0-4) Urine Squamous Epithelial Cells Occ /LPF Urine Bacteria 0 /HPF (0-FEW) Vitamin B12 Level 828 pg/mL (247-911) Thyroid Stimulating Hormone (TSH) 1.486 uIU/mL (0.358-3.74) Urine Opiates Screen Neg (NEG) Urine Methadone Screen Neg (NEG) Urine Barbiturates Neg (NEG) Urine Phencyclidine Screen Neg (NEG) Urine Amphetamine/Methamphetamine Neg (NEG) Urine Benzodiazepines Screen Neg (NEG) Urine Cocaine Screen Neg (NEG) Urine Cannabinoids Screen Neg (NEG) Urine Ethyl Alcohol Neg (NEG) Laboratory Tests Test 01/09/18 03:47 Urine Opiates Screen Neg (NEG) Urine Methadone Screen Neg (NEG) Urine Barbiturates Neg (NEG) Urine Phencyclidine Screen Neg (NEG) Urine Amphetamine/Methamphetamine Neg (NEG) Urine Benzodiazepines Screen Neg (NEG) Urine Cocaine Screen Neg (NEG) Urine Cannabinoids Screen Neg (NEG) Urine Ethyl Alcohol Neg (NEG) Medications Current Medications Potassium Chloride/Water 50 ml @ 50 mls/hr 1X ONCE IV ; Start 01/07/18 at 21: 45; Stop 01/07/18 at 22:44; Status UNV Potassium Chloride/Sodium Chloride 1,000 ml @ 200 mls/hr 1X ONCE IV Last administered on 01/07/18at 22:00; Start 01/07/18 at 22:00; Stop 01/08/18 at 02 :59; Status DC Aspirin (Silvino Aspirin) 325 mg 1X ONCE PO ; Start 01/08/18 at 01:00; Stop at 01:01; Status DC Levetiracetam 500 mg/Dextrose 105 ml @ 420 mls/hr Q12HR IV Last administered on 01/09/18at 08:53; Start 01/08/18 at 01:00; Stop 01/09/18 at 11:41; Status DC Lorazepam (Ativan) 2 mg PRN Q4HRS PRN IV ANXIETY / AGITATION; Start 01/08/18 at 09:30 Acetaminophen (Tylenol) 500 mg PRN Q6HRS PRN PO MILD PAIN / TEMP; Start at 09:30 Acetaminophen/ Codeine Phosphate (Tylenol #3) 1 tab PRN Q6HRS PRN PO PAIN; Start 01/08/18 at 09:30 Ibuprofen (Motrin) 400 mg PRN Q6HRS PRN PO INFLAMMATION; Start 01/08/18 at 09: 30 Ondansetron HCl (Zofran) 4 mg PRN Q6HRS PRN IV NAUSEA/VOMITING; Start at 09:30 Ondansetron HCl (Zofran Odt) 4 mg PRN Q6HRS PRN PO NAUSEA/VOMITING; Start at 09:30 Allopurinol (Zyloprim) 300 mg DAILY PO Last administered on 01/09/18at 08:55; Start 01/08/18 at 12:00 Aspirin (Silvino Aspirin) 325 mg BID PO Last administered on 01/09/18at 08:54; Start 01/08/18 at 12:00 Docusate Sodium (Colace) 100 mg BID PO Last administered on 01/08/18at 21:02; Start 01/08/18 at 12:00 Ferrous Sulfate (Feosol) 325 mg DAILY PO Last administered on 01/09/18at 08:54 ; Start 01/08/18 at 12:00 Tamsulosin HCl (Flomax) 0.4 mg QHS PO Last administered on 01/08/18 21:01; Start 01/08/18 at 21:00 Triamterene/HCTZ (Maxzide 37.5/ 25mg) 1 tab DAILY PO Last administered on 01/09 08:54; Start 01/08/18 at 12:00 Vitamin D (Vitamin D3) 2,000 unit DAILY PO Last administered on 01/09/18 08: 54; Start 01/08/18 at 12:00 Hydroxyurea (Hydrea) 1,500 mg TuThSa PO Last administered on 01/09/18 09:14; Start 01/09/18 at 09:00 Hydroxyurea (Hydrea) 2,000 mg SuMoWeFr PO Last administered on 01/08/18 14:41 ; Start 01/08/18 at 09:00 Lactobacillus Rhamnosus (Culturelle) 2 cap BID PO Last administered on 21:02; Start 01/08/18 at 12:00 Multivitamins (Thera M Plus) 1 tab DAILY PO Last administered on 01/09/18 08: 54; Start 01/08/18 at 12:00 Non-Formulary Medication (Nifedipine (Nifedipine Er)) 90 mg DAILY PO Last administered on 01/09/18 08:53; Start 01/08/18 at 14:00 Latanoprost (Xalatan) 1 drop QHS OU Last administered on 01/08/18 21:01; Start 01/08/18 at 21:00 Latanoprost (Xalatan) 1 drop QHS OU Last administered on 01/08/18 21:01; Start 01/08/18 at 21:00 Gadobutrol (Gadavist) 10 mmol 1X ONCE IV Last administered on 01/08/18 13:33 ; Start 01/08/18 at 13:30; Stop 01/08/18 at 13:31; Status DC Levetiracetam (Keppra) 500 mg BID PO ; Start 01/09/18 at 21:00 Active Scripts Active Keppra (Levetiracetam) 500 Mg Tablet 500 Mg PO BID Flomax (Tamsulosin Hcl) 0.4 Mg Cap.er.24h 0.4 Mg PO QHS Reported Folic Acid 1 Mg Tablet 1 Tab PO DAILY Hydroxyurea 500 Mg Capsule 1,500 Mg PO TUTHSA Hydroxyurea 500 Mg Capsule 2,000 Mg PO SUMOWEFR Travatan Z (Travoprost) 5 Ml Drops 5 Ml OU QHS Multivitamins (Multivitamin) 1 Each Tablet 1 Tab PO DAILY Iron (Ferrous Sulfate) 325 Mg Tablet 325 Mg PO DAILY Stool Softener (Docusate Sodium) 100 Mg Capsule 100 Mg PO BID Culturelle (Lactobacillus Rhamnosus Gg) 1 Each Capsule 2 Each PO BID Aspirin 325 Mg Tablet 1 Tab PO BID Vitamin D (Cholecalciferol (Vitamin D3)) 2,000 Unit Capsule 2,000 Unit PO DAILY Nifedipine Er (Nifedipine) 30 Mg Tab.er.24 90 Mg PO DAILY Triamterene-Hctz 37.5-25 Mg Tb (Triamterene/Hydrochlorothiazid) 1 Each Tablet 1 Tab PO DAILY Allopurinol 300 Mg Tablet 300 Mg PO DAILY Vitals/I & O Vital Sign - Last 24 Hours 01/08/18 01/08/18 01/08/18 01/08/18 15:00 19:05 20:00 23:43 Temp 97.5 98.7 98.0 97.5 98.7 98.0 Pulse 61 69 70 Resp 20 18 18 B/P (MAP) 131/69 (89) 110/62 (78) 122/70 (87) Pulse Ox 96 98 97 O2 Delivery Room Air Room Air Room Air Room Air 01/09/18 01/09/18 01/09/18 01/09/18 03:52 07:40 08:00 11:03 Temp 98.2 98.8 98.8 98.2 98.8 98.8 Pulse 70 87 88 Resp 20 20 19 B/P (MAP) 114/65 (81) 125/68 (87) 125/76 (92) Pulse Ox 95 99 96 O2 Delivery Room Air Room Air Room Air Room Air Intake and Output 01/08/18 01/08/18 01/09/18 15:00 23:00 07:00 Intake Total 380 ml 360 ml 300 ml Output Total 400 ml Balance 380 ml 360 ml -100 ml VALENTINA MCINTYRE MD Jan 09, 2018 12:22
--- NOTE | 2018-01-09 14:10 | RAD ---
Examination: KNEE RIGHT 2V History: RT KNEE PAIN, LIMITED ROM. NO KNOWN INJURY Comparison/Correlation: None Findings: Frontal and lateral views of the right knee were obtained. Severe narrowing of the medial compartment is present with varus deformity of the right knee. Remodeling of the medial compartment with subchondral sclerosis is present. Patellofemoral compartment narrowing and remodeling is evident. Spurring about the patellofemoral compartment is notable. Mild spurring of the medial compartment noted. Small knee joint effusion is present. No fracture or bony destruction. 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 Small joint effusion. Electronically signed by: Hardik Dominique MD (01/09/2018 2:07 PM) [facility]
[2018-01-09 15:43] VITALS: BP 96/51
--- NOTE | 2018-01-09 16:11 | PDOC ---
PROGRESS NOTES Assessment Assessment Metabolic encephalopathy. Seizure or seizure like episode. Syncopal spell? Cognitive function impairment. Tremors. HTN. Thrombocytosis. Chronic left knee infection wound. No evidence of acute CVA, brain tumor, or seizure foci this time. RECOMMENDATIONS/PLAN: He was started Keppra 500 mg by his PCP, continue for a few months. Please consult Cardiology for syncopal spell. Treat medical diseases. Wound care. FU wt [facility] for left knee issues. EEG on 01/08/18: No epileptiform discharges or electrographic seizures. The posterior dominant rhythm of 7-8 Hz/s is slow for age. Brain MRI w/wo contrast + seizure protocol on 01/08/18: negative. HISTORY OF THE PRESENT ILLNESS: 72-y-old AA male patient with above medical diseases and prolonged left knee problems as infection and unhealing wound since 06/2017. He had an episode as altered mental status with UE tremor like movements for about 30 seconds. His stated he had another one in the ER for about 2 minutes but no ER documentation note. Past Medical History Cardiovascular: No pertinent hx, HTN Musculoskeletal: Other Infectious disease: Other (bacteremia, chornic knee infections needing IV abx weeks) Past Surgical History Total left knee replacement Family History Hypertension, Stroke Social History Smoke: No ALCOHOL: none Drugs: None ALLERGY: NKDA MEDICATIONS: Refer to MAR REVIEW OF SYSTEMS: Constitutional: No malnutrition, weight loss, cachexia. Head: No traumatic brain or head injury. Skin: No edema, or rash. Ear: No infection. Eyes: No vision loss or color blindness. Nose: No bleeding or purulent discharges. Hearing: No hearing decrease. Neck: No injury. Cardiac: HTN.. Pulmonary: No COPD. GI: No GI ulcer, GI bleeding. Urinary/genital: No dysuria, incontinence, urinary retention. Endocrinologic: No cousin face, craniofacial dysmorphism, polydactyly, goiter. Skeletomuscular: No muscular atrophy, deformity. Neurological: see HP. Psychiatric: Denies drug use/abuse. Otherwise, not [id number] review of systems. PHYSICAL EXAMINATION: General appearance is in subacute distress. HEENT: Normocephalic and nontraumatic. Eyes, nose, ears, and throat are unremarkable. Neck is supple. No lymphadenopathy. No crepitus. Cardiovascular: S1, S2, regular rate and rhythm. Pulmonary: Clear to auscultation bilaterally. Abdomen: Bowel sounds are positive. Abdomen is soft, nontender, and nondistended. Extremities: Left knee wound. No restriction of range of motion NEUROLOGICAL EXAMINATION: Awake. Oriented to time, place and person. PERRL. EOMI. CN: no focal findings. Muscle tone: within normal. Muscle strength: 5- UE, 4- LE. DTR: 2 UE, 1+ at right knee, left knee not examined. Plantar reflex: Flexor response bilaterally Gait: Unable to walk. Sensory exam: no abnormal findings except left knee area pain. No cerebellar signs elicited. F-T-N test accurate. Objective Objective Vital Signs Date Time Temp Pulse Resp B/P (MAP) Pulse Ox O2 Delivery O2 Flow Rate FiO2 01/09/18 15:43 98.6 66 19 96/51 (66) 99 Room Air 98.6 Intake and Output 01/09/18 07:00 Intake Total 1040 ml Output Total 400 ml Balance 640 ml Intake Oral 1040 ml Output Urine Total 400 ml # Voids 3 Vitals Signs Vitals VS - Last 72 Hours, by Label Date Time Temp Pulse Resp B/P (MAP) Pulse Ox O2 Delivery O2 Flow Rate FiO2 01/09/18 15:43 98.6 66 19 96/51 (66) 99 Room Air 98.6 01/09/18 11:03 98.8 88 19 125/76 (92) 96 Room Air 98.8 01/09/18 08:00 Room Air 01/09/18 07:40 98.8 87 20 125/68 (87) 99 Room Air 98.8 01/09/18 03:52 98.2 70 20 114/65 (81) 95 Room Air 98.2 01/08/18 23:43 98.0 70 18 122/70 (87) 97 Room Air 98.0 01/08/18 20:00 Room Air 01/08/18 19:05 98.7 69 18 110/62 (78) 98 Room Air 98.7 01/08/18 15:00 97.5 61 20 131/69 (89) 96 Room Air 97.5 01/08/18 11:00 98.1 61 20 104/59 (74) 99 Room Air 98.1 01/08/18 08:00 Room Air 01/08/18 07:00 97.7 61 24 109/59 (76) 97 Room Air 97.7 Laboratory Laboratory Laboratory Tests Test 01/09/18 03:47 Urine Opiates Screen Neg (NEG) Urine Methadone Screen Neg (NEG) Urine Barbiturates Neg (NEG) Urine Phencyclidine Screen Neg (NEG) Urine Amphetamine/Methamphetamine Neg (NEG) Urine Benzodiazepines Screen Neg (NEG) Urine Cocaine Screen Neg (NEG) Urine Cannabinoids Screen Neg (NEG) Urine Ethyl Alcohol Neg (NEG) Medication Medications Current Medications Hydroxyurea (Hydrea) 1,500 mg TuThSa PO Last administered on 01/09/18at 09:14; Start 01/09/18 at 09:00 Latanoprost (Xalatan) 1 drop QHS OU Last administered on 01/08/18at 21:01; Start 01/08/18 at 21:00; Stop 01/09/18 at 14:32; Status DC Latanoprost (Xalatan) 1 drop QHS OU Last administered on 01/08/18at 21:01; Start 01/08/18 at 21:00 Levetiracetam (Keppra) 500 mg BID PO ; Start 01/09/18 at 21:00 Tamsulosin HCl (Flomax) 0.4 mg QHS PO Last administered on 01/08/18at 21:01; Start 01/08/18 at 21:00 Comment Review of Relevant I have reviewed the following items allie (where applicable) has been applied. MUSHTAQ GARCIA MD Jan 09, 2018 16:11
[2018-01-09 19:16] VITALS: BP 116/60
[2018-01-09] MEDS: TAMSULOSIN 0.4 MG CAP.ER.24H. PO SCH (21:01)
[2018-01-09] MEDS: levETIRAcetam 500 MG TABLET PO SCH (21:01)
[2018-01-09] MEDS: LATANOPROST 0.005% OPHTH SOLUTION 2.5ML BOTTLE. OU SCH (21:02)
[2018-01-09 23:41] VITALS: BP 109/69
[2018-01-10 03:13] VITALS: BP 110/62
[2018-01-10 07:49] VITALS: BP 95/51
[2018-01-10] MEDS: NIFEDIPINE 90 MG PO SCH (08:36)
[2018-01-10] MEDS: ASPIRIN 325 MG TABLET PO SCH ×2 (08:37→20:42)
[2018-01-10] MEDS: LACTOBACILLUS RHAMNOSUS GG 1 CAPSULE. PO SCH ×2 (08:37→20:42)
[2018-01-10] MEDS: FERROUS SULFATE 325 MG TABLET. PO SCH (08:37)
[2018-01-10] MEDS: TRIAMTERENE/HCTZ 37.5/25MG TABLET. PO SCH (08:37)
[2018-01-10] MEDS: MULTIVITAMIN with MINERAL TABLET. PO SCH (08:37)
[2018-01-10] MEDS: CHOLECALCIFEROL (VITAMIN D3) 1,000 UNIT TABLET PO SCH (08:38)
[2018-01-10] MEDS: levETIRAcetam 500 MG TABLET PO SCH ×2 (08:38→20:42)
[2018-01-10] MEDS: DOCUSATE SODIUM 100 MG CAPSULE. PO SCH ×2 (08:38→20:42)
[2018-01-10] MEDS: FOLIC ACID 1 MG TABLET. PO SCH ×3 (08:38→21:00)
[2018-01-10] MEDS: ALLOPURINOL 300 MG TABLET. PO SCH (08:38)
[2018-01-10 11:12] VITALS: BP 101/51
--- NOTE | 2018-01-10 12:11 | PDOC ---
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 Parada for a complicated left knee surgery/history needing prolonged IV antibiotic, PICC, knee spacers etc. Plan: I did consult Dr. 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 LIkely home with home health tomorrow if no further intervention by orthopedics Vitals Vitals Vital Signs Date Time Temp Pulse Resp B/P (MAP) Pulse Ox O2 Delivery O2 Flow Rate FiO2 01/10/18 11:12 98.1 72 19 101/51 (68) 98 Room Air 98.1 Physical Exam General: Alert, Oriented X3, Cooperative, No acute distress Heart: Regular rate, Normal S1, Normal S2 Lungs: Clear Abdomen: Normal bowel sounds, Soft, No tenderness, No hepatosplenomegaly, No masses Extremities: No clubbing, No cyanosis, No edema, Normal pulses, No tenderness/ swelling, Other (right knee limited flexion secondary to pain, no appreciable swelling or redness or warmth) Skin: No rashes, No breakdown, No significant lesion Review of Systems Review of Systems Right knee pain, weak, unable to ambulate Assessment and Plan Assessmemt and Plan Problems Medical Problems: (1) Seizure-like activity Status: Acute Comment Review of Relevant I have reviewed the following items allie (where applicable) has been applied. Labs Laboratory Tests Test 01/09/18 03:47 Urine Opiates Screen Neg (NEG) Urine Methadone Screen Neg (NEG) Urine Barbiturates Neg (NEG) Urine Phencyclidine Screen Neg (NEG) Urine Amphetamine/Methamphetamine Neg (NEG) Urine Benzodiazepines Screen Neg (NEG) Urine Cocaine Screen Neg (NEG) Urine Cannabinoids Screen Neg (NEG) Urine Ethyl Alcohol Neg (NEG) Microbiology 01/07/18 Urine Culture - Final, Complete 01/07/18 Urine Culture Result 1 (MARY) - Final, Complete Medications Current Medications Potassium Chloride/Water 50 ml @ 50 mls/hr 1X ONCE IV ; Start 01/07/18 at 21: 45; Stop 01/07/18 at 22:44; Status UNV Potassium Chloride/Sodium Chloride 1,000 ml @ 200 mls/hr 1X ONCE IV Last administered on 01/07/18at 22:00; Start 01/07/18 at 22:00; Stop 01/08/18 at 02 :59; Status DC Aspirin (ISH Aspirin) 325 mg 1X ONCE PO ; Start 01/08/18 at 01:00; Stop at 01:01; Status DC Levetiracetam 500 mg/Dextrose 105 ml @ 420 mls/hr Q12HR IV Last administered on 01/09/18at 08:53; Start 01/08/18 at 01:00; Stop 01/09/18 at 11:41; Status DC Lorazepam (Ativan) 2 mg PRN Q4HRS PRN IV ANXIETY / AGITATION; Start 01/08/18 at 09:30 Acetaminophen (Tylenol) 500 mg PRN Q6HRS PRN PO MILD PAIN / TEMP; Start at 09:30 Acetaminophen/ Codeine Phosphate (Tylenol #3) 1 tab PRN Q6HRS PRN PO MODERATE PAIN; Start 01/08/18 at 09:30 Ibuprofen (Motrin) 400 mg PRN Q6HRS PRN PO INFLAMMATION; Start 01/08/18 at 09: 30 Ondansetron HCl (Zofran) 4 mg PRN Q6HRS PRN IV NAUSEA/VOMITING; Start at 09:30 Ondansetron HCl (Zofran Odt) 4 mg PRN Q6HRS PRN PO NAUSEA/VOMITING; Start at 09:30 Allopurinol (Zyloprim) 300 mg DAILY PO Last administered on 01/10/18at 08:38; Start 01/08/18 at 12:00 Aspirin (Silvino Aspirin) 325 mg BID PO Last administered on 01/10/18 08:37; Start 01/08/18 at 12:00 Docusate Sodium (Colace) 100 mg BID PO Last administered on 01/08/18 21:02; Start 01/08/18 at 12:00 Ferrous Sulfate (Feosol) 325 mg DAILY PO Last administered on 01/10/18 08:37 ; Start 01/08/18 at 12:00 Tamsulosin HCl (Flomax) 0.4 mg QHS PO Last administered on 01/09/18 21:01; Start 01/08/18 at 21:00 Triamterene/HCTZ (Maxzide 37.5/ 25mg) 1 tab DAILY PO Last administered on 01/10 08:37; Start 01/08/18 at 12:00 Vitamin D (Vitamin D3) 2,000 unit DAILY PO Last administered on 01/10/18 08: 38; Start 01/08/18 at 12:00 Hydroxyurea (Hydrea) 1,500 mg TuThSa PO Last administered on 01/09/18 09:14; Start 01/09/18 at 09:00; Stop 01/10/18 at 08:31; Status DC Hydroxyurea (Hydrea) 2,000 mg SuMoWeFr PO Last administered on 01/08/18 14:41 ; Start 01/08/18 at 09:00; Stop 01/10/18 at 08:31; Status DC Lactobacillus Rhamnosus (Culturelle) 2 cap BID PO Last administered on 08:37; Start 01/08/18 at 12:00 Multivitamins (Thera M Plus) 1 tab DAILY PO Last administered on 01/10/18 08: 37; Start 01/08/18 at 12:00 Non-Formulary Medication (Nifedipine (Nifedipine Er)) 90 mg DAILY PO Last administered on 01/10/18 08:36; Start 01/08/18 at 14:00 Latanoprost (Xalatan) 1 drop QHS OU Last administered on 01/08/18 21:01; Start 01/08/18 at 21:00; Stop 01/09/18 at 14:32; Status DC Latanoprost (Xalatan) 1 drop QHS OU Last administered on 01/09/18at 21:02; Start 01/08/18 at 21:00 Gadobutrol (Gadavist) 10 mmol 1X ONCE IV Last administered on 01/08/18at 13:33 ; Start 01/08/18 at 13:30; Stop 01/08/18 at 13:31; Status DC Levetiracetam (Keppra) 500 mg BID PO Last administered on 01/10/18at 08:38; Start 01/09/18 at 21:00 Folic Acid (Folic Acid) 1 mg DAILY PO ; Start 01/10/18 at 09:00 Hydroxyurea (Hydrea) 2,000 mg SuMoWeFr@2100 PO ; Start 01/10/18 at 21:00 Hydroxyurea (Hydrea) 1,500 mg TuThSa@2100 PO ; Start 01/12/18 at 21:00 Active Scripts Active Keppra (Levetiracetam) 500 Mg Tablet 500 Mg PO BID Flomax (Tamsulosin Hcl) 0.4 Mg Cap.er.24h 0.4 Mg PO QHS Reported Folic Acid 1 Mg Tablet 1 Tab PO DAILY Hydroxyurea 500 Mg Capsule 1,500 Mg PO TUTHSA Hydroxyurea 500 Mg Capsule 2,000 Mg PO SUMOWEFR Travatan Z (Travoprost) 5 Ml Drops 5 Ml OU QHS Multivitamins (Multivitamin) 1 Each Tablet 1 Tab PO DAILY Iron (Ferrous Sulfate) 325 Mg Tablet 325 Mg PO DAILY Stool Softener (Docusate Sodium) 100 Mg Capsule 100 Mg PO BID Culturelle (Lactobacillus Rhamnosus Gg) 1 Each Capsule 2 Each PO BID Aspirin 325 Mg Tablet 1 Tab PO BID Vitamin D (Cholecalciferol (Vitamin D3)) 2,000 Unit Capsule 2,000 Unit PO DAILY Nifedipine Er (Nifedipine) 30 Mg Tab.er.24 90 Mg PO DAILY Triamterene-Hctz 37.5-25 Mg Tb (Triamterene/Hydrochlorothiazid) 1 Each Tablet 1 Tab PO DAILY Allopurinol 300 Mg Tablet 300 Mg PO DAILY Vitals/I & O Vital Sign - Last 24 Hours 01/09/18 01/09/18 01/09/18 01/09/18 15:43 19:16 20:00 23:41 Temp 98.6 98.1 98.3 98.6 98.1 98.3 Pulse 66 76 63 Resp 19 18 18 B/P (MAP) 96/51 (66) 116/60 (78) 109/69 (82) Pulse Ox 99 98 98 O2 Delivery Room Air Room Air Room Air Room Air 01/10/18 01/10/18 01/10/18 03:13 07:49 11:12 Temp 98.0 97.6 98.1 98.0 97.6 98.1 Pulse 58 62 72 Resp 18 18 19 B/P (MAP) 110/62 (78) 95/51 (66) 101/51 (68) Pulse Ox 99 99 98 O2 Delivery Room Air Room Air Room Air Intake and Output 01/09/18 01/09/18 01/10/18 15:00 23:00 07:00 Intake Total 240 ml 0 ml Output Total 400 ml Balance -160 ml 0 ml VALENTINA MCINTYRE MD Jan 10, 2018 12:11
--- NOTE | 2018-01-10 13:10 | PDOC ---
PROGRESS NOTES Assessment Assessment Metabolic encephalopathy. Seizure or seizure like episode. Syncopal spell? Cognitive function impairment. Tremors. HTN. Thrombocytosis. Chronic left knee infection wound. No evidence of acute CVA, brain tumor, or seizure foci this time. RECOMMENDATIONS/PLAN: He was started Keppra 500 mg by his PCP, continue for a few months. May consult Cardiology for syncopal spell. Treat medical diseases. Wound care. FU wt [facility] for left knee treatment. EEG on 01/08/18: No epileptiform discharges or electrographic seizures. The posterior dominant rhythm of 7-8 Hz/s is slow for age. Brain MRI w/wo contrast + seizure protocol on 01/08/18: negative. HISTORY OF THE PRESENT ILLNESS: 72-y-old AA male patient with above medical diseases and prolonged left knee problems as infection and unhealing wound since 06/2017. He had an episode as altered mental status with UE tremor like movements for about 30 seconds. His stated he had another one in the ER for about 2 minutes but no ER documentation note. Past Medical History Cardiovascular: No pertinent hx, HTN Musculoskeletal: Other Infectious disease: Other (bacteremia, chornic knee infections needing IV abx weeks) Past Surgical History Total left knee replacement Family History Hypertension, Stroke Social History Smoke: No ALCOHOL: none Drugs: None ALLERGY: NKDA MEDICATIONS: Refer to MAR REVIEW OF SYSTEMS: Constitutional: No malnutrition, weight loss, cachexia. Head: No traumatic brain or head injury. Skin: No edema, or rash. Ear: No infection. Eyes: No vision loss or color blindness. Nose: No bleeding or purulent discharges. Hearing: No hearing decrease. Neck: No injury. Cardiac: HTN.. Pulmonary: No COPD. GI: No GI ulcer, GI bleeding. Urinary/genital: No dysuria, incontinence, urinary retention. Endocrinologic: No cousin face, craniofacial dysmorphism, polydactyly, goiter. Skeletomuscular: No muscular atrophy, deformity. Neurological: see HP. Psychiatric: Denies drug use/abuse. Otherwise, not [id number] review of systems. PHYSICAL EXAMINATION: General appearance is in subacute distress. HEENT: Normocephalic and nontraumatic. Eyes, nose, ears, and throat are unremarkable. Neck is supple. No lymphadenopathy. No crepitus. Cardiovascular: S1, S2, regular rate and rhythm. Pulmonary: Clear to auscultation bilaterally. Abdomen: Bowel sounds are positive. Abdomen is soft, nontender, and nondistended. Extremities: Left knee wound. No restriction of range of motion NEUROLOGICAL EXAMINATION: Awake. Oriented to time, place and person. PERRL. EOMI. CN: no focal findings. Muscle tone: within normal. Right LE muscular atrophy, wasting type. Muscle strength: 5- UE, 3-4 LE. DTR: 2 UE, 1 at right knee, left knee not examined. Plantar reflex: Flexor response bilaterally Gait: Unable to walk. Sensory exam: no abnormal findings except left knee area pain. No cerebellar signs elicited. F-T-N test fine. Objective Objective Vital Signs Date Time Temp Pulse Resp B/P (MAP) Pulse Ox O2 Delivery O2 Flow Rate FiO2 01/10/18 11:12 98.1 72 19 101/51 (68) 98 Room Air 98.1 Intake and Output 01/10/18 07:00 Intake Total 240 ml Output Total 400 ml Balance -160 ml Intake Oral 240 ml Output Urine Total 400 ml # Voids 2 # Bowel Movements 3 Vitals Signs Vitals VS - Last 72 Hours, by Label Date Time Temp Pulse Resp B/P (MAP) Pulse Ox O2 Delivery O2 Flow Rate FiO2 01/10/18 11:12 98.1 72 19 101/51 (68) 98 Room Air 98.1 01/10/18 07:49 97.6 62 18 95/51 (66) 99 Room Air 97.6 01/10/18 03:13 98.0 58 18 110/62 (78) 99 Room Air 98.0 01/09/18 23:41 98.3 63 18 109/69 (82) 98 Room Air 98.3 01/09/18 20:00 Room Air 01/09/18 19:16 98.1 76 18 116/60 (78) 98 Room Air 98.1 01/09/18 15:43 98.6 66 19 96/51 (66) 99 Room Air 98.6 01/09/18 11:03 98.8 88 19 125/76 (92) 96 Room Air 98.8 01/09/18 08:00 Room Air 01/09/18 07:40 98.8 87 20 125/68 (87) 99 Room Air 98.8 Laboratory Laboratory Microbiology 01/07/18 Urine Culture - Final, Complete 01/07/18 Urine Culture Result 1 (MARY) - Final, Complete Medication Medications Current Medications Folic Acid (Folic Acid) 1 mg DAILY PO ; Start 01/10/18 at 09:00 Hydroxyurea (Hydrea) 1,500 mg TuThSa@2100 PO ; Start 01/12/18 at 21:00 Hydroxyurea (Hydrea) 2,000 mg SuMoWeFr@2100 PO ; Start 01/10/18 at 21:00 Levetiracetam (Keppra) 500 mg BID PO Last administered on 01/10/18at 08:38; Start 01/09/18 at 21:00 Comment Review of Relevant I have reviewed the following items allie (where applicable) has been applied. MUSHTAQ GARCIA MD Jan 10, 2018 13:10
[2018-01-10 15:18] VITALS: BP 105/55
[2018-01-10 19:20] VITALS: BP 115/62
[2018-01-10] MEDS: HYDROXYUREA 500 MG CAPSULE PO SCH ×2 (19:45→21:00)
[2018-01-10] MEDS: TAMSULOSIN 0.4 MG CAP.ER.24H. PO SCH (20:42)
[2018-01-10] MEDS: LATANOPROST 0.005% OPHTH SOLUTION 2.5ML BOTTLE. OU SCH (20:48)
[2018-01-10 23:49] VITALS: BP 107/61
[2018-01-11 03:20] VITALS: BP 108/60
[2018-01-11 04:27] LABS: BASO # 0.1 x10^3/uL (0.0-0.2); BASO % 1 % (0-3); EOS # 0.1 x10^3/uL (0.0-0.7); EOS % 1 % (0-3); HEMATOCRIT 37.5 % (39.0-53.0); HEMOGLOBIN 12.7 g/dL (13.0-17.5); LYMPH # 2.3 x10^3/uL (1.0-4.8); LYMPH % 22 % (24-48); MEAN CORPUSCULAR HEMOGLOBIN 29 pg (25-35); MEAN CORPUSCULAR HGB CONC 34 g/dL (31-37); MEAN CORPUSCULAR VOLUME 86 fL (79-100); MONO # 1.1 x10^3/uL (0.0-1.1); MONO % 10 % (0-9); NEUT # 6.9 x10^3uL (1.8-7.7); NEUT % 66 % (31-73); PLATELET COUNT 587 x10^3/uL (140-400); RED BLOOD COUNT 4.37 x10^6/uL (4.30-5.70); RED CELL DISTRIBUTION WIDTH 29.6 % (11.5-14.5); WHITE BLOOD COUNT 10.5 x10^3/uL (4.0-11.0)
[2018-01-11 07:00] VITALS: BP 111/59
[2018-01-11] MEDS: NIFEDIPINE 90 MG PO SCH (08:35)
[2018-01-11] MEDS: ASPIRIN 325 MG TABLET PO SCH (08:36)
[2018-01-11] MEDS: MULTIVITAMIN with MINERAL TABLET. PO SCH (08:36)
[2018-01-11] MEDS: CHOLECALCIFEROL (VITAMIN D3) 1,000 UNIT TABLET PO SCH (08:37)
[2018-01-11] MEDS: levETIRAcetam 500 MG TABLET PO SCH (08:37)
[2018-01-11] MEDS: ALLOPURINOL 300 MG TABLET. PO SCH (08:37)
[2018-01-11] MEDS: TRIAMTERENE/HCTZ 37.5/25MG TABLET. PO SCH (08:37)
[2018-01-11] MEDS: FOLIC ACID 1 MG TABLET. PO SCH (08:38)
[2018-01-11] MEDS: LACTOBACILLUS RHAMNOSUS GG 1 CAPSULE. PO SCH (08:38)
[2018-01-11] MEDS: DOCUSATE SODIUM 100 MG CAPSULE. PO SCH (08:38)
[2018-01-11] MEDS: FERROUS SULFATE 325 MG TABLET. PO SCH (08:38)
--- NOTE | 2018-01-11 10:11 | PDOC ---
PROGRESS NOTES Subjective Subjective HPI - f/u of Essential thrombocythemia ROS- no CP Objective Objective Vital Signs Date Time Temp Pulse Resp B/P (MAP) Pulse Ox O2 Delivery O2 Flow Rate FiO2 01/11/18 07:00 97.8 61 18 111/59 (76) 97 Room Air 97.8 Intake and Output 01/11/18 07:00 Intake Total 430 ml Output Total 600 ml Balance -170 ml Intake Oral 430 ml Output Urine Total 600 ml # Bowel Movements 1 Physical Exam Heart: Normal S1, Normal S2 General: Alert, Oriented X3 Lungs: Clear to auscultation Neuro: Normal speech Psych/Mental Status: Mental status NL Assessment Assessment Problems Medical Problems: (1) Seizure-like activity Status: Acute IMPRESSION AND PLAN: 1. 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 He was started on hydroxyurea on 11/03/2017. He is currently on 2000 mg on Thursday, Thursday, Thursday and Thursday and 1500 mg the rest of the days. Platelet count is better at 587. Continue current dose and continue to monitor CBC. 2. Seizure-like activity. Per history, it does not sound like he had a typical seizure. However, I will await further workup per primary team. 3. Left total knee arthroplasty with infection, explantation and spacer placement. He will follow up with Orthopedics. Comment Review of Relevant I have reviewed the following items allie (where applicable) has been applied. Labs Laboratory Tests Test 01/11/18 04:00 White Blood Count 10.5 x10^3/uL (4.0-11.0) Red Blood Count 4.37 x10^6/uL (4.30-5.70) Hemoglobin 12.7 g/dL (13.0-17.5) Hematocrit 37.5 % (39.0-53.0) Mean Corpuscular Volume 86 fL (79-100) Mean Corpuscular Hemoglobin 29 pg (25-35) Mean Corpuscular Hemoglobin Concent 34 g/dL (31-37) Red Cell Distribution Width 29.6 % (11.5-14.5) Platelet Count 587 x10^3/uL (140-400) Neutrophils (%) (Auto) 66 % (31-73) Lymphocytes (%) (Auto) 22 % (24-48) Monocytes (%) (Auto) 10 % (0-9) Eosinophils (%) (Auto) 1 % (0-3) Basophils (%) (Auto) 1 % (0-3) Neutrophils # (Auto) 6.9 x10^3uL (1.8-7.7) Lymphocytes # (Auto) 2.3 x10^3/uL (1.0-4.8) Monocytes # (Auto) 1.1 x10^3/uL (0.0-1.1) Eosinophils # (Auto) 0.1 x10^3/uL (0.0-0.7) Basophils # (Auto) 0.1 x10^3/uL (0.0-0.2) Laboratory Tests Test 01/11/18 04:00 White Blood Count 10.5 x10^3/uL (4.0-11.0) Red Blood Count 4.37 x10^6/uL (4.30-5.70) Hemoglobin 12.7 g/dL (13.0-17.5) Hematocrit 37.5 % (39.0-53.0) Mean Corpuscular Volume 86 fL (79-100) Mean Corpuscular Hemoglobin 29 pg (25-35) Mean Corpuscular Hemoglobin Concent 34 g/dL (31-37) Red Cell Distribution Width 29.6 % (11.5-14.5) Platelet Count 587 x10^3/uL (140-400) Neutrophils (%) (Auto) 66 % (31-73) Lymphocytes (%) (Auto) 22 % (24-48) Monocytes (%) (Auto) 10 % (0-9) Eosinophils (%) (Auto) 1 % (0-3) Basophils (%) (Auto) 1 % (0-3) Neutrophils # (Auto) 6.9 x10^3uL (1.8-7.7) Lymphocytes # (Auto) 2.3 x10^3/uL (1.0-4.8) Monocytes # (Auto) 1.1 x10^3/uL (0.0-1.1) Eosinophils # (Auto) 0.1 x10^3/uL (0.0-0.7) Basophils # (Auto) 0.1 x10^3/uL (0.0-0.2) Microbiology 01/07/18 Urine Culture - Final, Complete 01/07/18 Urine Culture Result 1 (MARY) - Final, Complete Medications Current Medications Potassium Chloride/Water 50 ml @ 50 mls/hr 1X ONCE IV ; Start 01/07/18 at 21: 45; Stop 01/07/18 at 22:44; Status UNV Potassium Chloride/Sodium Chloride 1,000 ml @ 200 mls/hr 1X ONCE IV Last administered on 01/07/18at 22:00; Start 01/07/18 at 22:00; Stop 01/08/18 at 02 :59; Status DC Aspirin ([employer] Aspirin) 325 mg 1X ONCE PO ; Start 01/08/18 at 01:00; Stop at 01:01; Status DC Levetiracetam 500 mg/Dextrose 105 ml @ 420 mls/hr Q12HR IV Last administered on 01/09/18at 08:53; Start 01/08/18 at 01:00; Stop 01/09/18 at 11:41; Status DC Lorazepam (Ativan) 2 mg PRN Q4HRS PRN IV ANXIETY / AGITATION; Start 01/08/18 at 09:30 Acetaminophen (Tylenol) 500 mg PRN Q6HRS PRN PO MILD PAIN / TEMP; Start at 09:30 Acetaminophen/ Codeine Phosphate (Tylenol #3) 1 tab PRN Q6HRS PRN PO MODERATE PAIN; Start 01/08/18 at 09:30 Ibuprofen (Motrin) 400 mg PRN Q6HRS PRN PO INFLAMMATION; Start 01/08/18 at 09: 30 Ondansetron HCl (Zofran) 4 mg PRN Q6HRS PRN IV NAUSEA/VOMITING; Start at 09:30 Ondansetron HCl (Zofran Odt) 4 mg PRN Q6HRS PRN PO NAUSEA/VOMITING; Start at 09:30 Allopurinol (Zyloprim) 300 mg DAILY PO Last administered on 01/11/18at 08:37; Start 01/08/18 at 12:00 Aspirin (Silvino Aspirin) 325 mg BID PO Last administered on 01/11/18at 08:36; Start 01/08/18 at 12:00 Docusate Sodium (Colace) 100 mg BID PO Last administered on 01/08/18at 21:02; Start 01/08/18 at 12:00 Ferrous Sulfate (Feosol) 325 mg DAILY PO Last administered on 01/11/18 08:38 ; Start 01/08/18 at 12:00 Tamsulosin HCl (Flomax) 0.4 mg QHS PO Last administered on 01/10/18 20:42; Start 01/08/18 at 21:00 Triamterene/HCTZ (Maxzide 37.5/ 25mg) 1 tab DAILY PO Last administered on 01/11 08:37; Start 01/08/18 at 12:00 Vitamin D (Vitamin D3) 2,000 unit DAILY PO Last administered on 01/11/18 08: 37; Start 01/08/18 at 12:00 Hydroxyurea (Hydrea) 1,500 mg TuThSa PO Last administered on 01/09/18 09:14; Start 01/09/18 at 09:00; Stop 01/10/18 at 08:31; Status DC Hydroxyurea (Hydrea) 2,000 mg SuMoWeFr PO Last administered on 01/08/18 14:41 ; Start 01/08/18 at 09:00; Stop 01/10/18 at 08:31; Status DC Lactobacillus Rhamnosus (Culturelle) 2 cap BID PO Last administered on 08:38; Start 01/08/18 at 12:00 Multivitamins (Thera M Plus) 1 tab DAILY PO Last administered on 01/11/18 08: 36; Start 01/08/18 at 12:00 Non-Formulary Medication (Nifedipine (Nifedipine Er)) 90 mg DAILY PO Last administered on 01/11/18 08:35; Start 01/08/18 at 14:00 Latanoprost (Xalatan) 1 drop QHS OU Last administered on 01/08/18 21:01; Start 01/08/18 at 21:00; Stop 01/09/18 at 14:32; Status DC Latanoprost (Xalatan) 1 drop QHS OU Last administered on 01/10/18at 20:48; Start 01/08/18 at 21:00 Gadobutrol (Gadavist) 10 mmol 1X ONCE IV Last administered on 01/08/18at 13:33 ; Start 01/08/18 at 13:30; Stop 01/08/18 at 13:31; Status DC Levetiracetam (Keppra) 500 mg BID PO Last administered on 01/11/18at 08:37; Start 01/09/18 at 21:00 Folic Acid (Folic Acid) 1 mg DAILY PO ; Start 01/10/18 at 09:00; Stop at 20:48; Status DC Hydroxyurea (Hydrea) 2,000 mg SuMoWeFr@2100 PO Last administered on 01/10/18at 21:00; Start 01/10/18 at 21:00 Hydroxyurea (Hydrea) 1,500 mg TuThSa@2100 PO ; Start 01/12/18 at 21:00 Folic Acid (Folic Acid) 1 mg DAILY PO Last administered on 01/10/18at 21:00; Start 01/10/18 at 21:00 Active Scripts Active Keppra (Levetiracetam) 500 Mg Tablet 500 Mg PO BID Flomax (Tamsulosin Hcl) 0.4 Mg Cap.er.24h 0.4 Mg PO QHS Reported Folic Acid 1 Mg Tablet 1 Tab PO DAILY Hydroxyurea 500 Mg Capsule 1,500 Mg PO TUTHSA Hydroxyurea 500 Mg Capsule 2,000 Mg PO SUMOWEFR Travatan Z (Travoprost) 5 Ml Drops 5 Ml OU QHS Multivitamins (Multivitamin) 1 Each Tablet 1 Tab PO DAILY Iron (Ferrous Sulfate) 325 Mg Tablet 325 Mg PO DAILY Stool Softener (Docusate Sodium) 100 Mg Capsule 100 Mg PO BID Culturelle (Lactobacillus Rhamnosus Gg) 1 Each Capsule 2 Each PO BID Aspirin 325 Mg Tablet 1 Tab PO BID Vitamin D (Cholecalciferol (Vitamin D3)) 2,000 Unit Capsule 2,000 Unit PO DAILY Nifedipine Er (Nifedipine) 30 Mg Tab.er.24 90 Mg PO DAILY Triamterene-Hctz 37.5-25 Mg Tb (Triamterene/Hydrochlorothiazid) 1 Each Tablet 1 Tab PO DAILY Allopurinol 300 Mg Tablet 300 Mg PO DAILY Vitals/I & O Vital Sign - Last 24 Hours 01/10/18 01/10/18 01/10/18 01/10/18 11:12 15:18 19:20 20:00 Temp 98.1 97.7 97.9 98.1 97.7 97.9 Pulse 72 66 58 Resp 19 19 18 B/P (MAP) 101/51 (68) 105/55 (72) 115/62 (79) Pulse Ox 98 99 99 O2 Delivery Room Air Room Air Room Air Room Air 01/10/18 01/11/18 01/11/18 23:49 03:20 07:00 Temp 98.0 97.9 97.8 98.0 97.9 97.8 Pulse 63 62 61 Resp 18 18 18 B/P (MAP) 107/61 (76) 108/60 (76) 111/59 (76) Pulse Ox 97 99 97 O2 Delivery Room Air Room Air Room Air Intake and Output 01/10/18 01/10/18 01/11/18 15:00 23:00 07:00 Intake Total 180 ml 250 ml Output Total 600 ml 0 ml Balance -420 ml 250 ml PRANAV SCOTT MD Jan 11, 2018 10:11
[2018-01-11 11:00] VITALS: BP 113/62
--- NOTE | 2018-01-11 12:11 | PDOC ---
PROGRESS NOTES Assessment Problems Medical Problems: (1) Seizure-like activity Status: Acute Metabolic encephalopathy. Seizure or seizure like episode, unlikely epileptic. Syncopal spell? Cognitive function impairment. Tremors. HTN. Thrombocytosis. Chronic left knee infection wound. No evidence of acute CVA, brain tumor, or seizure foci this time. Plan He was started Keppra 500 mg by his PCP, continue for a few months. Treat medical diseases. Discussed with Subjective No complaints Objective Vital Signs Date Time Temp Pulse Resp B/P (MAP) Pulse Ox O2 Delivery O2 Flow Rate FiO2 01/11/18 11:00 98.0 62 16 113/62 (79) 99 Room Air 98.0 Intake and Output 01/11/18 07:00 Intake Total 430 ml Output Total 600 ml Balance -170 ml Intake Oral 430 ml Output Urine Total 600 ml # Bowel Movements 1 PHYSICAL EXAM Alert. Oriented to time, place and person. PERRL. EOMI. CN: no focal findings. Muscle tone: normal. Muscle strength: 5/5 arms, 3/5 legs DTR: 1+ Plantar reflex: flexor Gait: not examined in bed. Sensory exam: no abnormal findings. No cerebellar signs elicited. Review of Relevant I have reviewed the following items allie (where applicable) has been applied. Labs Laboratory Tests Test 01/11/18 04:00 White Blood Count 10.5 x10^3/uL (4.0-11.0) Red Blood Count 4.37 x10^6/uL (4.30-5.70) Hemoglobin 12.7 g/dL (13.0-17.5) Hematocrit 37.5 % (39.0-53.0) Mean Corpuscular Volume 86 fL (79-100) Mean Corpuscular Hemoglobin 29 pg (25-35) Mean Corpuscular Hemoglobin Concent 34 g/dL (31-37) Red Cell Distribution Width 29.6 % (11.5-14.5) Platelet Count 587 x10^3/uL (140-400) Neutrophils (%) (Auto) 66 % (31-73) Lymphocytes (%) (Auto) 22 % (24-48) Monocytes (%) (Auto) 10 % (0-9) Eosinophils (%) (Auto) 1 % (0-3) Basophils (%) (Auto) 1 % (0-3) Neutrophils # (Auto) 6.9 x10^3uL (1.8-7.7) Lymphocytes # (Auto) 2.3 x10^3/uL (1.0-4.8) Monocytes # (Auto) 1.1 x10^3/uL (0.0-1.1) Eosinophils # (Auto) 0.1 x10^3/uL (0.0-0.7) Basophils # (Auto) 0.1 x10^3/uL (0.0-0.2) Laboratory Tests Test 01/11/18 04:00 White Blood Count 10.5 x10^3/uL (4.0-11.0) Red Blood Count 4.37 x10^6/uL (4.30-5.70) Hemoglobin 12.7 g/dL (13.0-17.5) Hematocrit 37.5 % (39.0-53.0) Mean Corpuscular Volume 86 fL (79-100) Mean Corpuscular Hemoglobin 29 pg (25-35) Mean Corpuscular Hemoglobin Concent 34 g/dL (31-37) Red Cell Distribution Width 29.6 % (11.5-14.5) Platelet Count 587 x10^3/uL (140-400) Neutrophils (%) (Auto) 66 % (31-73) Lymphocytes (%) (Auto) 22 % (24-48) Monocytes (%) (Auto) 10 % (0-9) Eosinophils (%) (Auto) 1 % (0-3) Basophils (%) (Auto) 1 % (0-3) Neutrophils # (Auto) 6.9 x10^3uL (1.8-7.7) Lymphocytes # (Auto) 2.3 x10^3/uL (1.0-4.8) Monocytes # (Auto) 1.1 x10^3/uL (0.0-1.1) Eosinophils # (Auto) 0.1 x10^3/uL (0.0-0.7) Basophils # (Auto) 0.1 x10^3/uL (0.0-0.2) Microbiology 01/07/18 Urine Culture - Final, Complete 01/07/18 Urine Culture Result 1 (MARY) - Final, Complete Medications Current Medications Potassium Chloride/Water 50 ml @ 50 mls/hr 1X ONCE IV ; Start 01/07/18 at 21: 45; Stop 01/07/18 at 22:44; Status UNV Potassium Chloride/Sodium Chloride 1,000 ml @ 200 mls/hr 1X ONCE IV Last administered on 01/07/18at 22:00; Start 01/07/18 at 22:00; Stop 01/08/18 at 02 :59; Status DC Aspirin ([employer] Aspirin) 325 mg 1X ONCE PO ; Start 01/08/18 at 01:00; Stop at 01:01; Status DC Levetiracetam 500 mg/Dextrose 105 ml @ 420 mls/hr Q12HR IV Last administered on 01/09/18at 08:53; Start 01/08/18 at 01:00; Stop 01/09/18 at 11:41; Status DC Lorazepam (Ativan) 2 mg PRN Q4HRS PRN IV ANXIETY / AGITATION; Start 01/08/18 at 09:30 Acetaminophen (Tylenol) 500 mg PRN Q6HRS PRN PO MILD PAIN / TEMP; Start at 09:30 Acetaminophen/ Codeine Phosphate (Tylenol #3) 1 tab PRN Q6HRS PRN PO MODERATE PAIN; Start 01/08/18 at 09:30 Ibuprofen (Motrin) 400 mg PRN Q6HRS PRN PO INFLAMMATION; Start 01/08/18 at 09: 30 Ondansetron HCl (Zofran) 4 mg PRN Q6HRS PRN IV NAUSEA/VOMITING; Start at 09:30 Ondansetron HCl (Zofran Odt) 4 mg PRN Q6HRS PRN PO NAUSEA/VOMITING; Start at 09:30 Allopurinol (Zyloprim) 300 mg DAILY PO Last administered on 01/11/18at 08:37; Start 01/08/18 at 12:00 Aspirin (Silvino Aspirin) 325 mg BID PO Last administered on 01/11/18at 08:36; Start 01/08/18 at 12:00 Docusate Sodium (Colace) 100 mg BID PO Last administered on 01/08/18at 21:02; Start 01/08/18 at 12:00 Ferrous Sulfate (Feosol) 325 mg DAILY PO Last administered on 01/11/18at 08:38 ; Start 01/08/18 at 12:00 Tamsulosin HCl (Flomax) 0.4 mg QHS PO Last administered on 01/10/18at 20:42; Start 01/08/18 at 21:00 Triamterene/HCTZ (Maxzide 37.5/ 25mg) 1 tab DAILY PO Last administered on 01/11 08:37; Start 01/08/18 at 12:00 Vitamin D (Vitamin D3) 2,000 unit DAILY PO Last administered on 01/11/18 08: 37; Start 01/08/18 at 12:00 Hydroxyurea (Hydrea) 1,500 mg TuThSa PO Last administered on 01/09/18 09:14; Start 01/09/18 at 09:00; Stop 01/10/18 at 08:31; Status DC Hydroxyurea (Hydrea) 2,000 mg SuMoWeFr PO Last administered on 01/08/18 14:41 ; Start 01/08/18 at 09:00; Stop 01/10/18 at 08:31; Status DC Lactobacillus Rhamnosus (Culturelle) 2 cap BID PO Last administered on 08:38; Start 01/08/18 at 12:00 Multivitamins (Thera M Plus) 1 tab DAILY PO Last administered on 01/11/18 08: 36; Start 01/08/18 at 12:00 Non-Formulary Medication (Nifedipine (Nifedipine Er)) 90 mg DAILY PO Last administered on 01/11/18 08:35; Start 01/08/18 at 14:00 Latanoprost (Xalatan) 1 drop QHS OU Last administered on 01/08/18at 21:01; Start 01/08/18 at 21:00; Stop 01/09/18 at 14:32; Status DC Latanoprost (Xalatan) 1 drop QHS OU Last administered on 01/10/18at 20:48; Start 01/08/18 at 21:00 Gadobutrol (Gadavist) 10 mmol 1X ONCE IV Last administered on 01/08/18 13:33 ; Start 01/08/18 at 13:30; Stop 01/08/18 at 13:31; Status DC Levetiracetam (Keppra) 500 mg BID PO Last administered on 10/29/18at 08:37; Start 01/09/18 at 21:00 Folic Acid (Folic Acid) 1 mg DAILY PO ; Start 01/10/18 at 09:00; Stop at 20:48; Status DC Hydroxyurea (Hydrea) 2,000 mg SuMoWeFr@2100 PO Last administered on 01/10/18at 21:00; Start 01/10/18 at 21:00 Hydroxyurea (Hydrea) 1,500 mg TuThSa@2100 PO ; Start 01/12/18 at 21:00 Folic Acid (Folic Acid) 1 mg DAILY PO Last administered on 01/10/18at 21:00; Start 01/10/18 at 21:00 Active Scripts Active Keppra (Levetiracetam) 500 Mg Tablet 500 Mg PO BID Flomax (Tamsulosin Hcl) 0.4 Mg Cap.er.24h 0.4 Mg PO QHS Reported Folic Acid 1 Mg Tablet 1 Tab PO DAILY Hydroxyurea 500 Mg Capsule 1,500 Mg PO TUTHSA Hydroxyurea 500 Mg Capsule 2,000 Mg PO SUMOWEFR Travatan Z (Travoprost) 5 Ml Drops 5 Ml OU QHS Multivitamins (Multivitamin) 1 Each Tablet 1 Tab PO DAILY Iron (Ferrous Sulfate) 325 Mg Tablet 325 Mg PO DAILY Stool Softener (Docusate Sodium) 100 Mg Capsule 100 Mg PO BID Culturelle (Lactobacillus Rhamnosus Gg) 1 Each Capsule 2 Each PO BID Aspirin 325 Mg Tablet 1 Tab PO BID Vitamin D (Cholecalciferol (Vitamin D3)) 2,000 Unit Capsule 2,000 Unit PO DAILY Nifedipine Er (Nifedipine) 30 Mg Tab.er.24 90 Mg PO DAILY Triamterene-Hctz 37.5-25 Mg Tb (Triamterene/Hydrochlorothiazid) 1 Each Tablet 1 Tab PO DAILY Allopurinol 300 Mg Tablet 300 Mg PO DAILY Vitals/I & O Vital Sign - Last 24 Hours 01/10/18 01/10/18 01/10/18 01/10/18 15:18 19:20 20:00 23:49 Temp 97.7 97.9 98.0 97.7 97.9 98.0 Pulse 66 58 63 Resp 19 18 18 B/P (MAP) 105/55 (72) 115/62 (79) 107/61 (76) Pulse Ox 99 99 97 O2 Delivery Room Air Room Air Room Air Room Air 01/11/18 01/11/18 01/11/18 01/11/18 03:20 07:00 08:00 11:00 Temp 97.9 97.8 98.0 97.9 97.8 98.0 Pulse 62 61 62 Resp 18 18 16 B/P (MAP) 108/60 (76) 111/59 (76) 113/62 (79) Pulse Ox 99 97 99 O2 Delivery Room Air Room Air Room Air Room Air Intake and Output 01/10/18 01/10/18 01/11/18 15:00 23:00 07:00 Intake Total 180 ml 250 ml Output Total 600 ml 0 ml Balance -420 ml 250 ml MARIA DOLORES CHOI MD Jan 11, 2018 12:11
--- NOTE | 2018-01-11 12:31 | DISCH ---
DISCHARGE DISCHARGE INFORMATION: DISCHARGE DATE: Jan 11, 2018 FINAL DIAGNOSIS Problems Medical Problems: (1) Seizure-like activity Status: Acute CONDITION ON DISCHARGE: Stable CODE STATUS: Code Status: Full LONG TERM: SNF STAY <30 DAYS: Yes POST DISCHARGE ORDERS: ACTIVITY ORDERS: Activity as tolerated WEIGHT BEARING STATUS: As tolerated, Non weight bearing BATHING ORDERS: Shower-keep dressing dry WOUND/INCISION CARE: Keep wound/cast CDI CHECKS AFTER DISCHARGE: CHECKS AFTER DISCHARGE: Check blood press - daily, Check your Temp as needed FOLLOW-UP: PHYSICIAN FOLLOW-UP: < 2 weeks TREATMENT/EQUIPMENT ORDERS: ADAPTIVE EQUIPMENT NEEDED: Walker Physical Therapy For: Evalulation/Treatment Occupational Therapy For: Evaluation/Treatment DISCHARGE MEDICATIONS: Home Meds Active Scripts Levetiracetam (KEPPRA) 500 Mg Tablet, 500 MG PO BID, #60 TAB Prov:VALENTINA MCINTYRE MD 01/09/18 Tamsulosin Hcl (FLOMAX) 0.4 Mg Cap.er.24h, 0.4 MG PO QHS, #30 CAP.SR Prov:VIRGILIO BEARD MD 09/11/17 Reported Medications Folic Acid (FOLIC ACID) 1 Mg Tablet, 1 TAB PO DAILY, #90 TAB 1 Refill 01/08/18 Hydroxyurea (HYDROXYUREA) 500 Mg Capsule, 1500 MG PO TuThSa, CAP 01/08/18 Hydroxyurea (HYDROXYUREA) 500 Mg Capsule, 2000 MG PO SuMoWeFr, CAP 01/08/18 Travoprost (TRAVATAN Z) 5 Ml Drops, 5 ML OU QHS, % 01/08/18 Multivitamin (MULTIVITAMINS) 1 Each Tablet, 1 TAB PO DAILY, TAB 09/02/17 Ferrous Sulfate (IRON) 325 Mg Tablet, 325 MG PO DAILY, TAB 09/02/17 Docusate Sodium (STOOL SOFTENER) 100 Mg Capsule, 100 MG PO BID, CAP 08/24/17 Lactobacillus Rhamnosus Gg (CULTURELLE) 1 Each Capsule, 2 EACH PO BID, CAP 08/24/17 Aspirin (ASPIRIN) 325 Mg Tablet, 1 TAB PO BID, TAB 07/23/17 Cholecalciferol (Vitamin D3) (VITAMIN D) 2,000 Unit Capsule, 2000 UNIT PO DAILY , CAP 06/19/17 Nifedipine (NIFEDIPINE ER) 30 Mg Tab.er.24, 90 MG PO DAILY, TAB.SR 06/19/17 Triamterene/Hydrochlorothiazid (TRIAMTERENE-HCTZ 37.5-25 MG TB) 1 Each Tablet, 1 TAB PO DAILY, TAB 06/19/17 Allopurinol (ALLOPURINOL) 300 Mg Tablet, 300 MG PO DAILY, TAB 06/19/17 VIRGILIO BEARD MD Jan 11, 2018 12:31
--- NOTE | 2018-01-11 16:11 | CONS ---
DATE OF CONSULTATION: 01/11/2018 REASON FOR CONSULTATION: Evaluate and treat longstanding untreated dante's horn mycotic nails. PAST MEDICAL HISTORY: He has had left knee infection, but has come in with a different problem today. He is a 72-year-old -[place] male with past medical history significant for hypertension, bacteremia, chronic knee infection, continued IV antibiotics for weeks at one point in time. PAST SURGICAL HISTORY: Total knee replacement. SOCIAL HISTORY: Denies smoking and alcohol. REASON FOR ADMISSION: Today was for seizures. MEDICATIONS: Reviewed. Aspirin, Ativan, Motrin, Zofran, Zyloprim, Colace, Flomax, Maxzide, Hydrea. ALLERGIES: No known allergies. PHYSICAL EXAMINATION: DERMATOLOGIC: The patient has elongated mycotic nails of all nails. They are dystrophic with onycholysis of nail plates and gryphosis present. Minimal danet's horn in presentation. No break in the skin. No signs of abscess or bacterial infection. Decreased turgor, absence of hair growth is noted. VASCULAR: Pedal pulses are present at plus +1/2 and 2/4 bilateral. Skin temperature is slightly decreased. Capillary filling time is 3-5 seconds to the digits. MUSCULOSKELETAL: No significant bunions or hammertoe deformities that were contributory to this problem were noted. NEUROLOGIC: The patient appears to have normal sensorium. IMPRESSION: 1. Severe clinical evidence of onychomycosis, onychogryphosis, onychocryptosis all of 10 toenails. 2. Some diminished vascularity, non-limb threatening. PLAN: Debridement of all mycotic nails was performed using double action nail forceps and rotary drill. No hemorrhage incurred. I discussed with the patient and family member present i.e. his options of care at this point, I would recommend continued maintenance care on a regular basis and most likely improvement will be appreciated. Topical medications are discussed with the patient that could be considered along with oral medications. The pros and cons including no guarantees and the fact that oral medications would require blood work. Surgical option is addressed at this point in time. I would definitely encourage him to try nonsurgical care at this time due to the fact that all nails are significantly involved. Thank you very much for the opportunity to take care of this patient regarding his podiatric needs. ANTONIO GUEVARA DPM DR: LEONARDO/judith JOB#: [id number] / [id number]
[2018-01-12] MEDS ORDERED: HYDROXYUREA 500 MG CAPSULE PO SCH (21:00)
== END 2018-01-11 14:13 | DRG 100 ==
LOC: ER 19:22 → 6 SOUTH 01-08 00:42
PROVIDERS: ADMIT Family Medicine; ATTEND Family Medicine
PROC: 0HBRXZZ Excision of Toe Nail, External Approach (ICD-10-PCS; principal; 2018-01-11)
PROC: 0HBRXZZ Excision of Toe Nail, External Approach (ICD-10-PCS; 2018-01-11)
PROC: 0HBRXZZ Excision of Toe Nail, External Approach (ICD-10-PCS; 2018-01-11)
PROC: 0HBRXZZ Excision of Toe Nail, External Approach (ICD-10-PCS; 2018-01-11)
PROC: 0HBRXZZ Excision of Toe Nail, External Approach (ICD-10-PCS; 2018-01-11)
PROC: 0HBRXZZ Excision of Toe Nail, External Approach (ICD-10-PCS; 2018-01-11)
PROC: 0HBRXZZ Excision of Toe Nail, External Approach (ICD-10-PCS; 2018-01-11)
PROC: 0HBRXZZ Excision of Toe Nail, External Approach (ICD-10-PCS; 2018-01-11)
PROC: 0HBRXZZ Excision of Toe Nail, External Approach (ICD-10-PCS; 2018-01-11)
PROC: 0HBRXZZ Excision of Toe Nail, External Approach (ICD-10-PCS; 2018-01-11)
DX: G40.89 Other seizures (principal); E43 Unspecified severe protein-calorie malnutrition; R65.10 Systemic inflammatory response syndrome (SIRS) of non-infectious origin without acute organ dysfunction; D47.3 Essential (hemorrhagic) thrombocythemia; Z96.652 Presence of left artificial knee joint; I10 Essential (primary) hypertension; R50.9 Fever, unspecified; D72.829 Elevated white blood cell count, unspecified; M10.9 Gout, unspecified; L60.2 Onychogryphosis; L60.0 Ingrowing nail; S81.002A Unspecified open wound, left knee, initial encounter; X58.XXXA Exposure to other specified factors, initial encounter; B35.1 Tinea unguium; M21.161 Varus deformity, not elsewhere classified, right knee; Z82.49 Family history of ischemic heart disease and other diseases of the circulatory system; Z82.3 Family history of stroke; Z93.1 Gastrostomy status; Y93.89 Activity, other specified; Y92.89 Other specified places as the place of occurrence of the external cause; Y99.8 Other external cause status
CPT/HCPCS: 36415; 70450; 70553; 73560; 80053; 80307; 81001; 82607; 83605; 84443; 85025; 85651; 87086; 93005; 95816; A9585; J1953; J3480; 97110; 97530; 99285-25; G0479